=== PATIENT | male | born 1980 | race African-American/Black ===

== ENCOUNTER 2017-01-05 23:40 | Observation (INO) | payer OTHER ==
[2017-01-05] MEDS ORDERED: ASPIRIN PO STA (23:58)
[2017-01-06 00:10] LABS: MANUAL DIFF NEEDED? NO
[2017-01-06 00:18] LABS: BASO% 0.3 % (0.0-0.8); EOS% 2.8 % (0.0-10.0); HEMATOCRIT 38.1 % (42.0-52.0); HEMOGLOBIN 13.5 g/dL (14.0-18.0); IMM GRAN# 0.02 X1000 (0.0-0.04); IMM GRAN% 0.3 % (0.0-0.5); LYMPH# 2.38 X1000 (1.2-3.4); LYMPH% 32.7 % (20.5-51.1); MCH 28.4 PG (27-31); MCHC 35.4 g/dL (33-37); MCV 80.2 FL (81-99); MONO# 0.59 X1000 (0.11-0.59); MONO% 8.1 % (1.7-9.3); MPV 10.3 FL (7.4-10.4); NEUT% 55.8 % (42.2-75.2); PLT 333 X1000 (130-400); RBC 4.75 XMIL (4.7-6.1)
[2017-01-06] MEDS ORDERED: ZOFRAN IV ONE (00:22)
[2017-01-06] MEDS ORDERED: DILAUDID IV ONE (00:22)
--- NOTE | 2017-01-06 00:42 | EKG Report ---
Test Performed on : 01/06/2017 00:33:32 AM Test Reason : CHEST PAIN Blood Pressure : / mmHG Vent. Rate : 083 BPM Atrial Rate : 083 BPM P-R Int : 150 ms QRS Dur : 144 ms QT Int : 406 ms P-R-T Axes : 045 050 031 degrees QTc Int : 477 ms Normal sinus rhythm. Right bundle branch block Abnormal ECG When compared with ECG of 27-AUG-2016 10:06, No significant change was found Unconfirmed Result
[2017-01-06 00:45] LABS: AMYLASE 56 U/L (20-200); LIPASE 22 U/L (13-60)
[2017-01-06 00:49] LABS: INR 0.98 (0.86-1.15); PROTIME 13.3 Seconds (12.1-15.5); PTT PL 28.6 Seconds (22.6-43.9)
[2017-01-06 00:57] LABS: ALBUMIN 3.2 g/dL (3.5-5.0); CALCIUM 9.2 mg/dL (8.8-10.2); MAGNESIUM 1.9 mg/dL (1.5-2.7); POTASSIUM 4.2 mmol/L (3.5-5.1); TOTAL BILIRUBIN 0.2 mg/dL (0.20-1.00); TOTAL PROTEIN 5.5 g/dL (6.3-8.3)
[2017-01-06] MEDS ORDERED: HUMULIN R IV ONE (01:20)
[2017-01-06 01:28] LABS: CK INDEX 2.8 (0.0-2.5); CK-MB 14.4 ng/mL (0.0-5.0)
[2017-01-06 02:03] LABS: URINE CULTURE PL NEEDED? NO; URINE EPITHELIAL CELLS <10 /HPF (<10); URINE SOURCE VOIDED; URINE WBC <10 /HPF (<10)
[2017-01-06 02:04] LABS: CLARITY CLEAR (CLEAR); COLOR YELLOW; URINE CRYSTAL CA OXALATE PRESENT /HPF
[2017-01-06 02:05] LABS: BILIRUBIN URINE NEGATIVE (NEGATIVE); BLOOD URINE 3+ (NEGATIVE); LEUKOCYTES URINE NEGATIVE (NEGATIVE); NITRITE URINE NEGATIVE (NEGATIVE); PH URINE 6.5; SP GRAVITY URINE 1.005; UROBILINOGEN URINE NORMAL
--- NOTE | 2017-01-06 02:21 | PROVIDER DOCUMENTATION ---
HPI-General Adult - General Source: patient - History of Present Illness -Gen Adult Nature of Presenting Problems: Pt is a 36 y/o M c chief complaint of R chest wall pain and RUQ abd pain c nausea x 1 day. Pt states his chest pain radiates to his L chest. Pt has a significant h/o diabetes and multiple PEs and DVTs. Pt is currently on Xarelto treating a RLE DVT. On arrival pt is in minimal distress. <Tavon Bennett - Last Filed: 01/06/17 02:10> <Siria Ponce - Last Filed: 01/06/17 03:00> <Geovani Benz - Last Filed: 01/06/17 04:24> - General Chief Complaint: Chest Pain Stated Complaint: CHEST PAIN Time Seen by Provider: 01/05/17 23:58 Allergies/Adverse Reactions: Patient Allergies Allergy/AdvReac Type Severity Reaction Status Date / Time morphine Allergy Mild HIVES Verified 10/06/16 22:08 sulfamethoxazole Allergy Unknown Unknown Verified 10/06/16 22:08 [From Bactrim] trimethoprim [From Bactrim] Allergy Unknown Unknown Verified 10/06/16 22:08 Home Medications: Home Medication List Medication Instructions Recorded Confirmed Last Taken Type Insulin Aspart [Novolog] See Protocol SQ DIRECTED 06/29/15 10/06/16 10/05/16 History Losartan [Cozaar] 50 mg PO BID 08/27/16 10/06/16 10/06/16 History Azithromycin [Zithromax Z-Víctor] 250 mg PO DIRECTED #1 pkg 10/06/16 Unknown Rx Cetirizine [Zyrtec] 10 mg PO DAILY #20 tablet 10/06/16 Unknown Rx Methylprednisolone [Medrol Dosepak] 4 mg PO DIRECTED #1 package 10/06/16 Unknown Rx Rivaroxaban [Xarelto] 10 mg PO DAILY 10/06/16 10/06/16 10/06/16 History Review of Systems - Adult - REVIEW OF SYSTEMS - ADULT Constitutional: reports: no symptoms reported. denies: chills, fatique Eyes: reports: no symptoms reported. denies: blurred vision, double vision Ears, Nose, Mouth & Throat: reports: no symptoms reported. denies: ear pain, nose pain, throat pain Cardiovascular: reports: chest pain. denies: orthopnea Respiratory: reports: no symptoms reported. denies: cough, shortness of breath Gastrointestinal: reports: no symptoms reported. denies: nausea, vomiting Genitourinary: reports: no symptoms reported. denies: hematuria, urinary retention Musculoskeletal: reports: no symptoms reported. denies: joint pain, joint swelling Integumentary: reports: no symptoms reported. denies: hives, itching Neurological: reports: no symptoms reported. denies: numbness, paresthesia Psychiatric: reports: no symptoms reported. denies: anxiety, emotional problems Endocrine: reports: no symptoms reported. denies: cold intolerance, heat intolerance Hematologic/Lymphatic: reports: no symptoms reported. denies: blood clots, low blood count Allergic/Immunologic: reports: no symptoms reported. denies: allergic reactions , eczema All Other Systems: Reviewed and Negative <Tavon Bennett - Last Filed: 01/06/17 02:10> Past History - Adult - PAST MEDICAL HISTORY-ADULT Review of Records: reports: Old Records Reviewed, Nursing Assessment Review, Medications Reviewed, Social history reviewed & non-contributory. Major Childhood Illnesses: reports: denies history Cardiovascular: reports: blood clots (had DVT in past) Respiratory: reports: denies history Gastrointestinal: reports: denies history Obstetrical/Gynecological: reports: denies history Genitourinary: reports: denies history Musculoskeletal: reports: denies history Neurological: reports: denies history Psychiatric: reports: denies history Endocrine/Immune: reports: Diabetes Diabetes Type: Type 2 Diabetes controlled by:: Insulin Dependent Other Conditions: reports: denies history - PRIOR SURGERIES/PROCEDURES Surgical/Procedure History: reports: other (IVC filter) - PRIOR HOSPITALIZATIONS Prior Hospitalizations: reports: for other non-related - IMMUNIZATION STATUS Childhood Immunizations: See Nurse Assessment Flu Vaccine: See Nurse Assessment - FAMILY HISTORY Family History: reviewed, not pertinent - SOCIAL HISTORY Smoking: denies Substance Use: none/never Alcohol Use Frequency: never Living Situation: family <Tavon Bennett - Last Filed: 01/06/17 02:10> Physical Exam-General - PHYSICAL EXAM-ADULT Initial Vital Signs Reviewed: Yes - CONSTITUTIONAL General Appearance: appears well, alert, no apparent distress - EYES Eyes: PERRL/EOMI, pink conjunctivae - HEAD, EARS, NOSE, MOUTH & THROAT HENMT: normocephalic/atraumatic, moist mucous membranes, normal ENT inspection - NECK Neck: non-tender, normal inspection - RESPIRATORY Respiratory: lungs clear, normal breath sounds, other (Tenderness to R lower chest on palpation, tenderness to L chest wall) - CARDIOVASCULAR Cardiovascular: normal peripheral pulses, regular rate, rhythm, no edema - GASTROINTESTINAL (ABDOMEN) Abdominal Exam: normal bowel sounds, soft, tenderness (RUQ) - MUSCULOSKELETAL Back Exam: normal inspection, no CVA tenderness, no vertebral tenderness Extremity: normal range of motion, non-tender, normal gait - SKIN Integumentary: normal color, normal turgor, warm/dry - NEUROLOGIC Neurologic: grossly normal, no motor/sensory deficits - PSYCHIATRIC Psych/Mental Status: normal mood/affect, normal thought content, normal thought process, oriented x 3 <Tavon Bennett - Last Filed: 01/06/17 02:10> Progress - CHANGE OF SHIFT REPORT (ED Provider) Report Given and Care Transferred to:: Dr. Benz (ER MD) Time of Transfer: 02:14 Items Pending: Labs, CT/MRI Results <Tavon Bennett - Last Filed: 01/06/17 02:10> - EKG 1 Time of EKG reading by physician:: 00:33 EKG Read and Signed by:: Geovani Benz EKG Interpretation (*Must complete 3 of following elements*): Abnormal Rate: 83 Rhythm: NSR QRS: RBB - CT/MRI 1 CT Study: Abdomen, Angiogram, Pelvis Impression: Abnormal (No PE identified. Mildly increased fluid in the distal small bowel with mild distention of small bowel and no definite obstruction at this time.: Dr. Amador- Real Rad radiologist) <Siria Ponce - Last Filed: 01/06/17 03:00> Departure <Tavon Bennett - Last Filed: 01/06/17 02:10> <Siria Ponce - Last Filed: 01/06/17 03:00> - Departure Time of Disposition Order: 04:15 Certified Medical Emergency: Emergent <Geovani Benz - Last Filed: 01/06/17 04:24> - Departure DIAGNOSIS: Poorly controlled diabetes mellitus Chest pain Qualifiers: Chest pain type: chest pain due to myocardial ischemia Ischemic chest pain type : stable angina pectoris Qualified Code(s): I20.8 - Other forms of angina pectoris DVT of popliteal vein Qualifiers: Laterality: unspecified laterality Chronicity: chronic Qualified Code(s): I82.539 - Chronic embolism and thrombosis of unspecified popliteal vein Disposition: ADMITTED INPATIENT 09 Condition: Fair Referrals: Robert Leiva MD [Primary Care Provider] - Attestation - Physician/ FELPIA Attestation Patient care was provided by Advanced Practice Provider:: Yes Advanced Practice Provider:: Tavon Bennett Advanced Practice Provider documentation review:: The Mid-level provider documentation, treatment plan and medical decision making was reviewed by the physician who agrees with all treatment and medical decision making by the P. The physician spent face to face time with patient:: Yes <Tavon Bennett - Last Filed: 01/06/17 02:10> - Scribe Verification/Attestation Scribe:: Siria Ponce Acting as Scribe for:: Geovani Benz Scribe documention review:: This chart was documented by a scribe and accurately reflects the service the provider performed and the decisions made by the provider. <Siria Ponce - Last Filed: 01/06/17 03:00> Physician Attestation - Physician Attestation I, the provider, attest to the following statement:: Tavon Bennett Physician documentation Attestation:: This documentation recorded by the scribe accurately reflects the service I personally performed and the decisions made by me. <Tavon Bennett - Last Filed: 01/06/17 02:10> - Physician Attestation I, the provider, attest to the following statement:: Geovani Benz Physician documentation Attestation:: This documentation recorded by the scribe accurately reflects the service I personally performed and the decisions made by me. <Siria Ponce - Last Filed: 01/06/17 03:00>
[2017-01-06] MEDS ORDERED: NITROGLYCERIN TOP ONE ×2 (03:12→04:12)
[2017-01-06] MEDS ORDERED: NITROGLYCERIN ONE (03:14)
--- NOTE | 2017-01-06 03:40 | EKG Report ---
Test Performed on : 01/06/2017 03:14:21 AM Test Reason : pain Blood Pressure : / mmHG Vent. Rate : 087 BPM Atrial Rate : 087 BPM P-R Int : 156 ms QRS Dur : 148 ms QT Int : 406 ms P-R-T Axes : 043 056 022 degrees QTc Int : 488 ms Normal sinus rhythm. Right bundle branch block Abnormal ECG When compared with ECG of 06-JAN-2017 01:12, (Unconfirmed) Right bundle branch block is now present Unconfirmed Result
[2017-01-06] MEDS ORDERED: DEMEROL IV ONE (03:59)
[2017-01-06] MEDS ORDERED: NS 1,000 ML IV ONE (04:12)
[2017-01-06] MEDS ORDERED: DILAUDID IV PRN (04:12)
[2017-01-06] MEDS ORDERED: DEMEROL ONE (04:29)
[2017-01-06 04:30] LABS: CK INDEX 2.9 (0.0-2.5); CK-MB 12.07 ng/mL (0.0-5.0)
--- NOTE | 2017-01-06 05:48 | EKG Report ---
Test Performed on : 01/06/2017 05:40:27 AM Test Reason : C/P Blood Pressure : / mmHG Vent. Rate : 086 BPM Atrial Rate : 086 BPM P-R Int : 164 ms QRS Dur : 148 ms QT Int : 412 ms P-R-T Axes : 057 045 020 degrees QTc Int : 493 ms Normal sinus rhythm. Right bundle branch block Abnormal ECG When compared with ECG of 06-JAN-2017 03:14, (Unconfirmed) No significant change was found Unconfirmed Result
[2017-01-06] MEDS: ZOFRAN IV PRN ×2 (06:56→10:58)
[2017-01-06] MEDS ORDERED: HUMULIN R SUBQ SCH (07:00)
--- NOTE | 2017-01-06 07:17 | Diag Imaging Result Document ---
PROCEDURE NAME: CHEST-2 VIEWS - 01/05/2017 TWO VIEWS OF THE CHEST: FINDINGS: There is no evidence of acute cardiac or pulmonary disease. Compared to 10/06/2016, there has been improvement in the inspiration. Otherwise there has been no significant change. IMPRESSION: No acute disease.
--- NOTE | 2017-01-06 07:47 | HISTORY AND PHYSICAL ---
CHIEF COMPLAINT: Chest pain. HISTORY OF PRESENT ILLNESS: The patient is a 36-year-old male who unfortunately has been very poorly compliant with his diabetes over the years. He has a recent history of DVT for which he has finally decided to take Xarelto. He presents to the emergency department noting that he is having right upper quadrant, right-sided chest pain that also develops into left-sided chest pain with radiation into his left arm. Positive nausea. Denies any worsening of the symptoms with movement. PAST MEDICAL HISTORY: Diabetes, multiple DVTs and pulmonary emboli in the past, hypertension, medical noncompliance. PAST SURGICAL HISTORY: IVC filter. ALLERGIES: Morphine causing hives. Bactrim causing itching. MEDICATIONS: NovoLog, Cozaar 50 b.i.d., Zyrtec, Xarelto 10 once a day. Uncertain why he is on such a low dose of Xarelto. Certainly should be on 20 mg once a day for treatment. FAMILY HISTORY: Noncontributory. SOCIAL HISTORY: The patient lives at home. He is currently not employed. He is . Does not smoke. Denies any other illicit substances. REVIEW OF SYSTEMS: As noted above. Patient denies any current fevers or chills. Positive nausea. Does not associated the nausea with the chest pain or the radiation. Denies any diaphoresis with chest pain. Denies any change in pain in his right upper quadrant with eating or not eating. Denies any diarrhea, constipation, melena, hematochezia. Denies any dysuria, frequency, urgency. Denies hesitancy, polyuria, polydipsia. Denies skin rashes, weight loss, or weight gain. PHYSICAL EXAMINATION: VITAL SIGNS: Reviewed. Temperature 97.5, pulse 87, respiratory rate 18, BP 148/80 to 115/74, saturating 96% on room air. GENERAL: Patient is a well-developed, well-nourished male who is in no respiratory distress. He is awake, alert. NECK: Supple. CV: Regular rate. CHEST: Relatively clear. ABDOMEN: Soft. Tender in the right upper quadrant. Positive bowel sounds. EXTREMITIES: Moves all extremities. NEUROLOGIC: No changes. LABS: CBC essentially normal. D-dimer less than 0.22. INR 0.98. Glucose 427. Creatinine 1.4. CPK 509, MB 14.4 with an index at 2.8. Troponin 0.024. ASSESSMENT: 1. Chest pain with elevated CPK and MB fraction. His troponin is negative x3 and EKG is unchanged. 2. Acute renal failure. His serum creatinine baseline is typically 1 to 1.1. He is currently at 1.4. He has had some nausea and notes he has not been drinking well which certainly could lead to a prerenal situation which would increase his BUN and creatinine. 3. Diabetes with hyperglycemia. Will continue patient's home insulin. 4. Mild protein calorie malnutrition with an albumin of 3.2. PLAN: We will admit patient to the hospital. We will check an ultrasound of his right upper quadrant to rule out gallbladder disease. Given his CPK is elevated he certainly needs stress test. Although with a negative troponin, it would be less likely that this was cardiac. Unfortunately, given his significant history of noncompliance and poorly controlled diabetes he certainly is at risk for heart disease. D-dimer is negative as is CTA of the chest, so this certainly is very, very unlikely to be a pulmonary emboli. We will continue Xarelto. If his stress test is negative and his ultrasound is negative. We will increase Xarelto to 20 mg once a day.
[2017-01-06 08:04] LABS: CK INDEX 2.8 (0.0-2.5); CK-MB 10.44 ng/mL (0.0-5.0)
[2017-01-06] MEDS ORDERED: XARELTO PO SCH (09:00)
--- NOTE | 2017-01-06 09:38 | Diag Imaging Result Document ---
PROCEDURE NAME: US ABDOMEN-COMPLETE - 01/06/2017 ABDOMINAL ULTRASOUND: FINDINGS: The aorta and inferior vena cava are within normal limits. The pancreatic body is normal in appearance and the remainder is not well demonstrated. There is no evidence of biliary dilatation, the common bile duct measuring 4 mm. The gallbladder is clear and nontender. There is antegrade flow in the portal vein. The spleen is not enlarged. The liver is otherwise unremarkable. The kidneys are without evidence of hydronephrosis or mass. There are no abnormal fluid collections. IMPRESSION: No evidence of acute disease.
[2017-01-06] MEDS: COZAAR PO SCH ×2 (09:40→21:26)
[2017-01-06 10:11] LABS: HEMOGLOBIN A1C 10.6 % (4.8-6.0)
[2017-01-06] MEDS ORDERED: TYLENOL PO ONE (10:49)
[2017-01-06] MEDS: HUMALOG (PARKWAY) SUBQ SCH ×3 (10:59→21:26)
--- NOTE | 2017-01-06 15:13 | Diag Imaging Result Document ---
PROCEDURE NAME: ABD/PELVIS/PULM ARTERIES - 01/06/2017 CTA OF THE CHEST WITH INTRAVENOUS CONTRAST: There are no filling defects in the pulmonary arteries. There is some dependent atelectasis in the lower lobes. There is no evidence of acute pulmonary disease otherwise. There are no abnormal fluid collections. The regional skeleton appears to be intact. IMPRESSION: No evidence of acute disease. CT OF THE ABDOMEN WITH INTRAVENOUS CONTRAST: FINDINGS: The liver, spleen, adrenal glands, and pancreas are within normal limits. The gallbladder is without evidence of stones or inflammation. There is an inferior vena cava filter just below the renal veins. The kidneys are without evidence of hydronephrosis, mass or stones. There is no evidence of bowel obstruction. The appendix is not distended or inflamed in appearance. The aorta is not distended. CT OF THE PELVIS WITH INTRAVENOUS CONTRAST: FINDINGS: There is no evidence of free fluid. No significant adenopathy is present.
[2017-01-06 16:16] LABS: UR AMPHETAMINES QUAL NONE DETECTED (NONE DETECT); UR BARBITUATES QUAL NONE DETECTED (NONE DETECT); UR BENZODIAZEPIN QUAL NONE DETECTED (NONE DETECT); UR CANNABINOIDS QUAL NONE DETECTED (NONE DETECT); UR COCAINE QUAL NONE DETECTED (NONE DETECT); UR MDMA QUAL NONE DETECTED (NONE DETECT); UR METHADONE QUAL NONE DETECTED (NONE DETECT); UR METHAMPHETAMINE QUAL NONE DETECTED (NONE DETECT); UR OPIATES QUAL NONE DETECTED (NONE DETECT); UR OXYCODONE QUAL NONE DETECTED (NONE DETECT); UR PCP QUAL NONE DETECTED (NONE DETECT); UR TCA QUAL NONE DETECTED (NONE DETECT)
[2017-01-06] MEDS ORDERED: ZOFRAN IV PRN (16:23)
[2017-01-06] MEDS ORDERED: SODIUM CHLORIDE 0.9% INJ SCH (16:30)
--- NOTE | 2017-01-06 17:27 | Diag Imaging Result Document ---
PROCEDURE NAME: MYOCARDIAL PERF SCAN, STR/REST - 01/06/2017 STUDY: Rest/stress Lexiscan myocardial perfusion study. REQUESTING PHYSICIAN: Robert Leiva MD REASON FOR THE STUDY: Abnormal cardiac enzymes and chest pain. DESCRIPTION: The patient came into the nuclear lab and received a rest injection of technetium 99 sestamibi 14.6 mCi. Multiple tomographic views of the cardiac structure were obtained at rest. Subsequently the patient underwent infusion of Lexiscan under the supervision of Dr. Adam. At peak infusion he was injected with technetium 99 sestamibi 45.3 mCi. Multiple tomographic views of the cardiac structures were obtained following the completion of the protocol. The following is a summary of the myocardial perfusion portion of the study. Poststress tomographic views of the left ventricle showed normal homogeneous distribution of the radiotracer throughout the entire left ventricular myocardium. There was no evidence of any postexercise defect. The rest images showed normal perfusion. Polar plots revealed the same. There was no evidence of neither inducible ischemia nor myocardial scar. Gated SPECT shows normal left ventricular systolic function. The ejection fraction is estimated at 60% with normal ventricular wall volumes and no wall motion abnormality. The lung/heart ratio is normal. TID is normal. SUMMARY: In summary, this study shows: 1. Essentially normal poststress myocardial perfusion scan. There is no scintigraphic evidence of pharmacologically-induced myocardial ischemia during the Lexiscan protocol. 2. Normal left ventricular systolic function with ejection fraction estimated at 60% with normal ventricular volumes and no wall motion abnormality. This study indicates a low risk for ischemic events. Clinical correlation is recommended.
[2017-01-06] MEDS: PROTONIX IV SCH (18:41)
[2017-01-07] MEDS: HUMALOG (PARKWAY) SUBQ SCH (06:00)
[2017-01-07 07:34] LABS: HEMATOCRIT 35.2 % (42.0-52.0); HEMOGLOBIN 12.5 g/dL (14.0-18.0); MCH 28.5 PG (27-31); MCHC 35.5 g/dL (33-37); MCV 80.4 FL (81-99); MPV 9.9 FL (7.4-10.4); RBC 4.38 XMIL (4.7-6.1)
--- NOTE | 2017-01-07 07:40 | PROGRESS NOTE ---
DATE: 01/07/2017 SUBJECTIVE: The patient notes he is still having some nausea, vomiting and abdominal pain. Still does not feel well. Denies any current chest pains or palpitations. Denies any dysuria or urinary frequency. OBJECTIVE: Vital Signs: Reviewed. Temperature 98 degrees, pulse 95, respiratory 18, BP 151/85 to 177/93. General: Patient is a well-developed male who is currently in no respiratory distress. He is awake, alert, lying in bed. Complains of abdominal pain. Neck: Supple. CV: Regular rate. Chest: Relatively clear. Abdomen: Soft. Diffusely tender in the epigastric region. DIAGNOSTIC DATA: Labs currently pending. Abdominal ultrasound negative for any gallbladder disease. GXT negative for acute coronary disease. ASSESSMENT/PLAN: 1. Diabetes with extremely poor home control. Patient has been very recalcitrant over the years of treatment. His medications have always been too expensive or too difficult to take, or too time-consuming. He recently notes that his previous health insurance [employer] would not pay for certain medications, so he simply stopped them. He has been taking unbeknownst to myself, NovoLog when he felt like he needed it. Did not take his blood sugar on any regular basis and did not take medications on any regular basis. 2. Nausea, vomiting. Likely secondary to diabetic gastroparesis. We will check a gastric emptying study. 3. Known history of deep vein thrombosis. Patient is on a low-dose of Xarelto because he has been halving his dose at home to attempt to save money. 4. Hypertension. Patient's blood pressures have been elevated. We will restart his home medications and follow. 5. Plan hopefully home in the next 1 or 2 days.
[2017-01-07 07:53] LABS: ALBUMIN 2.8 g/dL (3.5-5.0); CALCIUM 8.9 mg/dL (8.8-10.2); POTASSIUM 3.9 mmol/L (3.5-5.1); TOTAL BILIRUBIN 0.3 mg/dL (0.20-1.00); TOTAL PROTEIN 5.3 g/dL (6.3-8.3)
[2017-01-07] MEDS: COZAAR PO SCH ×2 (08:21→21:39)
[2017-01-07] MEDS: REGLAN IV SCH ×3 (08:21→21:39)
[2017-01-07] MEDS ORDERED: XARELTO PO SCH (09:00)
[2017-01-07] MEDS: HUMALOG DOSE (PARKWAY) SUBQ SCH ×3 (10:55→21:39)
[2017-01-07] MEDS: PROTONIX IV SCH (18:08)
[2017-01-08] MEDS: REGLAN IV SCH (05:51)
[2017-01-08] MEDS: HUMALOG DOSE (PARKWAY) SUBQ SCH (06:11)
[2017-01-08] MEDS ORDERED: DILAUDID IV PRN (07:00)
--- NOTE | 2017-01-08 14:33 | Diag Imaging Result Document ---
PROCEDURE NAME: GASTRIC EMPTYING - 01/08/2017 GASTRIC EMPTYING STUDY: FINDINGS: The patient was administered 563 mCi of technetium-99m sulfur colloid in oatmeal and the half-time of gastric emptying is 172.7 minutes which is well above the normal range. IMPRESSION: Delayed gastric emptying.
[2017-01-08 15:04] VITALS: BP 192/107
[2017-01-08] MEDS ORDERED: XARELTO PO SCH (17:00)
--- NOTE | 2017-01-09 14:38 | DISCHARGE SUMMARY ---
ADMISSION DATE: 01/05/2017 DISCHARGE DATE: 01/08/2017 DIAGNOSES: 1. Chest pain. Resolved. 2. Diabetes with extremely poor home control with an A1c of 10.6. 3. Nausea and vomiting. 4. Diabetic gastroparesis with a delayed gastric emptying of 172.7 minutes. 5. Known history of deep venous thrombosis. Currently on Xarelto. 6. Hypertension. DIAGNOSTICS: On 01/05/2017, chest x-ray revealed no acute disease. On 01/06/2017, CT of the abdomen and pelvis revealed no evidence of free fluid, no significant adenopathy, no evidence of acute disease for CT of the pelvis. CT of the abdomen revealed liver, spleen, adrenal glands and pancreas are within normal limits. The gallbladder is without evidence of stones or inflammation. There is an inferior vena cava filter just below the renal veins. The kidneys are without evidence of hydronephrosis, mass or stones. There is no evidence of bowel obstruction. The appendix is not distended or inflamed in appearance. The aorta is not distended. CT of the chest with IV contrast revealed no filling defects in the pulmonary arteries. There is some dependent atelectasis in the lower lobes. There is no evidence of acute pulmonary disease otherwise. There are no abnormal fluid collections. The regional skeleton appears to be intact, no evidence of acute disease. On 01/06/2017, abdominal ultrasound reveals no evidence of acute disease. On 01/06/2017, myocardial perfusion scan revealed essentially normal post-stress myocardial perfusion scan, no scintigraphic evidence of pharmacologically-induced myocardial ischemia during the Lexiscan scan protocol. Normal left ventricular systolic function with EF estimated at 60% with normal ventricular volumes and no wall motion abnormality. Study indicates a low risk for ischemic events On 01/08/2017, gastric emptying nuclear medicine revealed half-time gastric emptying of 172.7 minutes which is well above the normal range delayed gastric emptying. HOSPITAL COURSE: Mr. Arenas presented to the emergency room complaining of chest pain. He has a history of being poorly compliant with his diabetes over the years as well as a history of DVT for which he does take Xarelto. On admission he complained of right upper quadrant right-sided chest pain that develops into left-sided chest pain with radiation into his arm and nausea. His troponins were negative x3 with EKG unchanged. He underwent a myocardial perfusion scan which was negative for ischemia. He then underwent a gastric emptying nuclear scan which revealed gastroparesis. He was started on Reglan IV q.6 hours. This did help symptoms somewhat, although he continued with some nausea, vomiting and abdominal pain. He was noted to have an A1c of 10.6. He has a history of noncompliance and he notes that his previous health insurance, [employer], would not pay for certain medications so he stopped them. Unbeknownst to Dr. Leiva, his primary care physician, he was taking his NovoLog only when he felt he needed it. He was not checking his blood sugars on a regular basis or taking medications on any regular basis. On admission he had a blood sugar of 427. With his Lantus insulin and sliding scale his blood sugars have been in the 140-200 range. He was in acute renal failure on admission, with a creatinine of 1.4. His serum creatinine baseline is 1-1.1. He did have nausea and had not been drinking like he normally would, which could have led to an increase in his BUN and creatinine. After hydration he did receive IV contrast and creatinine did increase somewhat. He has been on Xarelto because with his DVT he was on a low dose of Xarelto in an attempt to save money due to his insurance changes. This dose will be increased to 20 mg daily. DISCHARGE PHYSICAL EXAMINATION: Cardiovascular: Regular rate and rhythm. S1 and S2 appreciated. Pulmonary: Breath sounds are clear. No increased work of breathing noted. Gastrointestinal: Soft, nontender. Abdomen is soft. He is diffusely tender in epigastric region. He is nondistended, with bowel sounds in all 4 quadrants. DISCHARGE MEDICATIONS: 1. Reglan 10 mg p.o. before meals and at bedtime. 2. Cozaar 50 mg b.i.d. 3. Lantus insulin 15 units daily. 4. NovoLog insulin, sliding scale as directed prehospitalization. 5. Xarelto 10 mg daily. DISCHARGE DIET: Diabetic. DISCHARGE ACTIVITY: As tolerated. FOLLOWUP: He is to follow with Dr. Leiva in the next 2-3 weeks. He will need to have a BMP drawn. We will give the patient orders for this. He is being discharged home in stable condition with family members. TIME SPENT: This is a greater than 30 minute discharge. Dictated by WONG King for Robert Leiva MD
== END 2017-01-08 17:40 | disposition home or self-care (01) ==
LOC: P.ED 23:40 → P.MEDSURG 23:41 → INTOOBSV 23:41
PROVIDERS: ADMIT Family Medicine; ATTEND Family Medicine
DX: R07.9 Chest pain, unspecified (principal); E11.65 Type 2 diabetes mellitus with hyperglycemia; T38.3X6A Underdosing of insulin and oral hypoglycemic [antidiabetic] drugs, initial encounter; Z91.128 Patient's intentional underdosing of medication regimen for other reason; Z91.19 Patient's noncompliance with other medical treatment and regimen; Z86.718 Personal history of other venous thrombosis and embolism; Z86.711 Personal history of pulmonary embolism; I10 Essential (primary) hypertension; E44.1 Mild protein-calorie malnutrition; N17.9 Acute kidney failure, unspecified; R10.11 Right upper quadrant pain; R11.2 Nausea with vomiting, unspecified; E11.43 Type 2 diabetes mellitus with diabetic autonomic (poly)neuropathy; K31.84 Gastroparesis; Z79.899 Other long term (current) drug therapy
CPT/HCPCS: 71020; 71275; 74177; 76700; 78264; 78452; 80053; 80305; 81001; 82009; 82150; 82550; 82553; 82948; 83036; 83690; 83735; 83880; 84443; 84484; 85025; 85027; 85379; 85610; 85730; 93005; 93017; 96374; 96375; A9500; A9541; C9113; J1170; J1815; J2175; J2405; J2765; J7030; Q9967; S0164

== ENCOUNTER 2018-12-26 06:26 | Observation (INO) ==
[2018-12-26] MEDS ORDERED: ZOFRAN ODT PO ONE (06:40)
[2018-12-26] MEDS ORDERED: MOTRIN PO ONE (06:40)
[2018-12-26] MEDS ORDERED: ZOSYN 3.375 GM in NS 50 ML IV ONE ×2 (06:43→10:00)
[2018-12-26] MEDS ORDERED: VANCOMYCIN 1 GM/NS 1 GM/250 ML IVPB IV ONE (06:43)
[2018-12-26] MEDS ORDERED: NS 1,000 ML IV SCH (06:45)
--- NOTE | 2018-12-26 06:46 | PROVIDER DOCUMENTATION ---
HPI-General Adult - General Chief Complaint: Flu Symptoms Stated Complaint: FLU SYMPTOMS Time Seen by Provider: 12/26/18 06:38 Source: patient Allergies/Adverse Reactions: Patient Allergies Allergy/AdvReac Type Severity Reaction Status Date / Time morphine Allergy Mild HIVES Verified 08/04/18 16:31 sulfamethoxazole Allergy Unknown Unknown Verified 08/04/18 16:31 [From Bactrim] trimethoprim [From Bactrim] Allergy Unknown Unknown Verified 08/04/18 16:31 Home Medications: Home Medication List Medication Instructions Recorded Confirmed Last Taken Type Acetaminophen [Tylenol] 650 mg PO Q6H PRN PRN tablet 11/22/17 12/26/18 Unknown Rx Insulin Glargine [Lantus] 16 units SQ DAILY 02/04/18 12/26/18 12/25/18 History Insulin Lispro [Humalog Kwikpen See Protocol SQ PRN PRN 02/04/18 12/26/18 Unknown History [id number]] Carvedilol [Coreg] 25 mg PO Q12H #60 tab 02/05/18 12/26/18 12/25/18 Rx Lactulose 30 ml PO DAILY PRN PRN 08/04/18 12/26/18 Unknown History Losartan Potassium 100 mg PO DAILY 08/04/18 12/26/18 12/25/18 History Promethazine HCl 25 mg PO TID PRN 08/04/18 12/26/18 Unknown History Hydralazine [Apresoline] 100 mg PO TID 12/26/18 12/26/18 12/25/18 History - History of Present Illness -Gen Adult Nature of Presenting Problems: says son was dx with Flu on Sat, placed on Tamiflu. Yest pm, began with sore throat, cough feeling lightheaded. Early this am, began with fever. Has some nausea, chest is sore from cough. no diarrhea. Is a MWF dialysis patient, takes insulin only by sliding scale Did not take his hydralazine this am due to vomiting Location of Pain/Injury: reports: none Pain Radiation: reports: no radiation Quality of Pain: reports: aching, burning (in throat) Timing: reports: still present Modifying Factors: improves with: nothing Similar Symptoms Previously?: No Recently seen or treated by another doctor?: No Review of Systems - Adult - REVIEW OF SYSTEMS - ADULT Constitutional: reports: see HPI, chills, fever Eyes: reports: no symptoms reported Ears, Nose, Mouth & Throat: reports: see HPI Cardiovascular: reports: no symptoms reported Respiratory: reports: cough (Non productive) Gastrointestinal: reports: nausea. denies: diarrhea Genitourinary: reports: no symptoms reported Musculoskeletal: reports: no symptoms reported Integumentary: reports: no symptoms reported Neurological: reports: no symptoms reported Psychiatric: reports: no symptoms reported Endocrine: reports: no symptoms reported Hematologic/Lymphatic: reports: no symptoms reported Allergic/Immunologic: reports: no symptoms reported Past History - Adult - PAST MEDICAL HISTORY-ADULT Review of Records: reports: Old Records Reviewed, Nursing Assessment Review, Medications Reviewed Major Childhood Illnesses: reports: denies history Cardiovascular: reports: blood clots, HTN Respiratory: reports: denies history Gastrointestinal: reports: denies history Obstetrical/Gynecological: reports: denies history Genitourinary: reports: denies history Musculoskeletal: reports: denies history Neurological: reports: denies history Psychiatric: reports: denies history Endocrine/Immune: reports: Diabetes Other Conditions: reports: denies history - PRIOR SURGERIES/PROCEDURES Surgical/Procedure History: reports: other (IVC filter) - PRIOR HOSPITALIZATIONS Prior Hospitalizations: reports: for other non-related - IMMUNIZATION STATUS Childhood Immunizations: See Nurse Assessment Flu Vaccine: See Nurse Assessment - FAMILY HISTORY Family History: reviewed, not pertinent Physical Exam-General - PHYSICAL EXAM-ADULT Initial Vital Signs Reviewed: Yes - CONSTITUTIONAL General Appearance: alert, mild distress - EYES Eyes: PERRL/EOMI - HEAD, EARS, NOSE, MOUTH & THROAT HENMT: normocephalic/atraumatic, moist mucous membranes, normal ENT inspection, pharynx normal - NECK Neck: full range of motion, supple - RESPIRATORY Respiratory: lungs clear, normal breath sounds, no pleuratic chest pain, no respiratory distress, no accessory muscle use - CARDIOVASCULAR Cardiovascular: tachycardia - GASTROINTESTINAL (ABDOMEN) Abdominal Exam: normal bowel sounds, non tender, soft - MUSCULOSKELETAL Back Exam: normal inspection, no CVA tenderness, no vertebral tenderness Extremity: normal range of motion - SKIN Integumentary: normal color, normal turgor, warm/dry - NEUROLOGIC Neurologic: tin 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 mill II-XII nml as tested, grossly normal, no motor/sensory deficits - PSYCHIATRIC Psych/Mental Status: normal mood/affect, normal thought content, normal thought process, oriented x 3 Progress - PLAN OF CARE/RESULTS Progress/Plan/Lab Results: Vital Signs - 8 hr 12/26/18 06:32 Temperature 102.8 F H Pulse Rate 112 H Respiratory Rate 20 Blood Pressure 234/123 O2 Sat by Pulse Oximetry 94 L Orders Category Date Time Status Cardiac Monitoring DIRECTED Care 12/26/18 06:39 Active IV Insertion ORDERED Care 12/26/18 06:39 Active Notify MD of + Sepsis Screen NOW Care 12/26/18 06:39 Active Notify Physician As Ordered Care 12/26/18 06:39 Active CHEST-1 VIEW [RAD] Stat Exams 12/26/18 06:39 Ordered BLOOD CULTURE [BLDCUL] Stat Lab 12/26/18 06:39 Uncollected CBC WITH DIFF [HEME] Stat Lab 12/26/18 06:39 Uncollected CK PROFILE [SP CHEM] Stat Lab 12/26/18 06:39 Uncollected COMPREHENSIVE METABOLIC PANEL [CHEM] Stat Lab 12/26/18 06:[address] Stat Lab 12/26/18 06:40 Ordered LACTATE, PLASMA [CHEM] Q3H Lab 12/26/18 06:45 Uncollected LACTATE, PLASMA [CHEM] Q3H Lab 12/26/18 09:45 Uncollected LACTATE, PLASMA [CHEM] Q3H Lab 12/26/18 12:45 Uncollected PROTIME WITH INR [COAG] Stat Lab 12/26/18 06:39 Uncollected PTT [COAG] Stat Lab 12/26/18 06:39 Uncollected TROPONIN T Stat Lab 12/26/18 06:[address] W/POSS RFLX CULT [URINALYSIS] Stat Lab 12/26/18 06:39 Uncollected 0.9% Sodium Chloride Inj [Ns] 1,000 ml Med 12/26/18 06:45 Ordered IV 1,000 mls/hr Ibuprofen [Motrin] Med 12/26/18 06:40 Discontinued 600 mg PO NOW ONE Ondansetron Odt [Zofran Odt] Med 12/26/18 06:40 Discontinued 4 mg PO NOW ONE Vancomycin 1 gm IV Now Med 12/26/18 06:43 Ordered Vancomycin 1 gm/Ns 1 gm in 250 ml IV NOW Zosyn 3.375 gm/Ns IV Now Med 12/26/18 06:43 Ordered Piperacillin/Tazobactam [Zosyn] 3.375 gm 0.9% Sodium Chloride Inj [Ns] 50 ml IV NOW Oxygen Device Stat Oth 12/26/18 06:39 Active Fluid bolus restricted since is dialysis pt Result Diagrams: 12/27/18 07:10 12/27/18 07:10 - REASSESSMENT Reassessment #1 Time Reassessed: 08:37 Status: improving (feels better, hydralizine given. just notified troponin up, get EKG.Has not retained any of his meds this morning. will dose co) Reassessment #2 Time Reassessed: 13:01 Status: unchanged (NO CHEST PAIN, REPEAT TROP UNCHANGED AT 0.48. ADMIT TO [facility] SOON.) - EKG 1 Time of EKG reading by physician:: 08:44 EKG Read and Signed by:: Trevon Carrizales EKG Interpretation (*Must complete 3 of following elements*): Abnormal Rate: 97 Rhythm: nsr QRS: RBB TX Interval: normal - CONSULTS/PCP/HOSPITALIST Notification #1 *Consult/PCP/Hospitalist*: DR MUNGUIA Time Discussed: 09:55 Consult Disposition: Admit (WILL ARRANGE ADMISSION TO [facility] FOR DIALYSIS. [facility].) - CHANGE OF SHIFT REPORT (ED Provider) 1 Report Given and Care Transferred to:: Trevon Carrizales Time of Transfer: 07:15 Items Pending: Labs Departure - Departure Date of Disposition Decision: 12/26/18 Time of Disposition Decision: 10:21 DIAGNOSIS: Uncontrolled hypertension, Renal failure, Elevated troponin, Fever, Flu-like symptoms Disposition: ADMITTED INPATIENT 09 Certified Medical Emergency: Emergent Condition: Fair - Critical Care Note This patient required my direct & personal management of CC.: No Attestation - Physician/ FELIPA Attestation Patient care was provided by Advanced Practice Provider:: No The physician spent face to face time with patient:: Yes Advanced Practice Provider documentation review:: Supervising physician onsite and consulted in the evaluation and care of this patient. The physician did have a face to face encounter with the patient.
[2018-12-26] MEDS ORDERED: TAMIFLU PO ONE (06:49)
[2018-12-26] MEDS ORDERED: APRESOLINE IV ONE (06:55)
[2018-12-26 07:17] LABS: INFLUENZA A NEGATIVE (NEGATIVE); INFLUENZA B NEGATIVE (NEGATIVE)
--- NOTE | 2018-12-26 07:39 | Diag Imaging Result Doc PS360 ---
EXAM: CHEST-PORTABLE HISTORY: + sepsis protocol TECHNIQUE: Portable chest single view COMPARISON: 08/04/2018 FINDINGS: The lungs are well expanded. The heart is not enlarged. The vessels are not distended. There are no infiltrates. No effusion identified. There is a right jugular line on the current exam. No pneumothorax. IMPRESSION: No pneumonia. Electronically signed by Deyvi Mcdermott 12/26/2018 7:37 AM
[2018-12-26 07:57] LABS: BASO# 0.04 X1000 (0.0-0.2); BASO% 0.6 % (0.0-0.8); EOS# 0.27 X1000 (0.0-0.7); EOS% 3.8 % (0.0-10.0); HEMATOCRIT 36.8 % (42.0-52.0); HEMOGLOBIN 11.8 g/dL (14.0-18.0); LYMPH# 0.66 X1000 (1.2-3.4); LYMPH% 9.2 % (20.5-51.1); MCH 27.1 PG (27-31); MCHC 32.1 g/dL (33-37); MCV 84.4 FL (81-99); MONO# 1.29 X1000 (0.11-0.59); MPV 8.9 FL (7.4-10.4); NEUT# 4.92 X1000 (1.4-6.5); NEUT% 68.4 % (42.2-75.2); PLT 364 X1000 (130-400); RBC 4.36 XMIL (4.7-6.1); RDW 18.1 % (11.5-14.5); WBC 7.18 X1000 (4.8-10.8)
[2018-12-26 08:04] LABS: INR 1.04; PROTIME 14.1 Seconds (11.0-16.0); PTT 33.2 Seconds (22.3-41.8)
[2018-12-26 08:14] LABS: ALBUMIN 3.2 g/dL (3.5-5.0); CALCIUM 8.8 mg/dL (8.8-10.2); POTASSIUM 4.6 mmol/L (3.5-5.1); TOTAL BILIRUBIN 0.3 mg/dL (0.20-1.00); TOTAL PROTEIN 6.5 g/dL (6.3-8.3)
[2018-12-26 08:23] LABS: CREATININE 6.9 mg/dL (0.7-1.2)
[2018-12-26 08:43] LABS: CK INDEX 2.2 (0.0-2.5); CK-MB 4.91 ng/mL (0.0-5.0)
[2018-12-26] MEDS ORDERED: NS 1,000 ML IV ONE (08:44)
[2018-12-26] MEDS ORDERED: ASPIRIN PO ONE (08:49)
[2018-12-26] MEDS ORDERED: COREG PO ONE (08:53)
--- NOTE | 2018-12-26 11:29 | HISTORY AND PHYSICAL ---
PRIMARY CARE PHYSICIAN: Dr. Robert Leiva. CHIEF COMPLAINT: Sore throat, cough, fever, body aches, chills, and feeling lightheaded. HISTORY OF PRESENTING ILLNESS: This is a 38-year-old, male who presents to [facility] ER with complaints of having a sore throat, body aches, chills, subjective fever, feeling lightheaded, and some nausea with vomiting. States that his son had brought him to the emergency room on Wednesday. He was diagnosed with the flu and started on Tamiflu. The patient began feeling symptoms yesterday. His workup showed a temperature of 102.8 degrees, pulse 112, blood pressure 234/123. He states he was not able to take his morning medications due to the vomiting. His laboratory data showed influenza A and B were both negative. BUN was 35 with a creatinine of 6.9, and he is an end-stage renal disease patient on dialysis on Wednesday, Wednesday, and Wednesday. He was noted to have an elevated troponin at 0.482. He has had an elevation in his troponins in the past with the highest being 0.334 in August of 2018. Had a myocardial perfusion scan on 08/08/2018 and that was a normal post-stress myocardial perfusion scan with an estimated ejection fraction of 60%. His chest x-ray today showed no pneumonia but he will be admitted for further evaluation and treatment. PAST MEDICAL HISTORY: Hypertension, diabetes, DVT, pulmonary emboli, end-stage renal disease with dialysis on Wednesday, Wednesday, and Wednesday, peripheral vascular disease, and chronic noncompliance. PAST SURGICAL HISTORY: An IVC filter and a left toe amputation. FAMILY HISTORY: Reviewed and noncontributory. SOCIAL HISTORY: Currently lives with family. Denies any tobacco, alcohol, or illicit drug use. ALLERGIES: To morphine and sulfa drugs. HOME MEDICATIONS: A current list will need to be obtained and reconciled. We will restart after review. We will place an order for nursing to update and confirm home medications. LABORATORY DATA: Showed a white blood cell count of 7.18, hemoglobin 11.8, hematocrit 36.8, platelets 364,000. PT and INR of 14.1 and 1.04. Sodium 140, potassium 4.6, chloride 100, CO2 25, BUN of 35, creatinine 6.9, glucose 171. Creatine kinase of 219, CK-MB of 4.91, troponin of 0.482. Plasma lactate of 0.8. Influenza A and B were both negative. A chest x-ray showed no pneumonia. REVIEW OF SYSTEMS: He was positive for a subjective fever, chills, body aches, cough, sore throat, felt lightheaded, nausea, vomiting. Denied any abdominal pain, constipation, diarrhea, or burning or hurting with urination. PHYSICAL EXAMINATION: VITAL SIGNS: On arrival, he had a temperature of a 102.8 degrees, pulse 112, respirations 20, blood pressure 234/123, saturating 94% on room air. Blood pressure is down at this time to 175/100 after he received hydralazine 10 mg IV x1, Coreg 25 mg p.o. x1, and an aspirin 325 mg p.o. x1 in the emergency room. GENERAL: This is a 38-year-old, male lying in the bed and answers questions appropriately. HEENT: Normocephalic, atraumatic. Normal ENT inspection. Oropharynx and nares are clear. Eyes: Pupils are equal, round, and reactive to light and accommodation. Extraocular movements are intact. NECK: Normal inspection. Normal range of motion. LUNGS: Clear to auscultation bilaterally with equal lung expansion and chest wall movement. HEART: With regular rate and rhythm. No murmurs, rubs, or gallops. ABDOMEN: Soft, nontender, nondistended. Bowel sounds are present x4 quadrants. MUSCULOSKELETAL: He has 5/5 strength x4 extremities. NEUROLOGICAL: The cranial nerves 2-12 appear grossly intact. ASSESSMENT: 1. Flu. 2. Accelerated hypertension. 3. Elevated troponin. 4. Diabetes type 2. PLAN: He will be admitted to the [facility]. Placed on telemetry. O2 per protocol. We will consult nephrology and cardiology. We will do serial cardiac enzymes x3 sets. We will place him on Tamiflu 75 mg p.o. b.i.d. and he received the first dose in the emergency room, Tylenol 650 mg p.o. q.4 hours p.r.n. for fever or pain, and Zofran 4 mg IV q.4 hours p.r.n. Pattern of blood sugars with sliding scale insulin. We will recheck a CBC and BMP in the a.m. Place him on a renal diet. Further orders after seen by attending and consultants. Dictated by WONG Gutierrez for Greg Ramos MD cc: WONG Gutierrez MD Gregory S. Cheatham, MD
[2018-12-26 11:43] LABS: BILIRUBIN URINE NEGATIVE (NEGATIVE); BLOOD URINE 1+ (NEGATIVE); CLARITY CLEAR (CLEAR); COLOR YELLOW; KETONE URINE NEGATIVE (NEGATIVE); LEUKOCYTES URINE NEGATIVE (NEGATIVE); NITRITE URINE NEGATIVE (NEGATIVE); PH URINE 6.5; UROBILINOGEN URINE NORMAL
[2018-12-26 11:49] LABS: URINE EPITHELIAL CELLS <10 /HPF (<10); URINE RBC <10 /HPF (<10); URINE SOURCE CLEAN CATCH; URINE WBC <10 /HPF (<10)
[2018-12-26] MEDS ORDERED: VANCOMYCIN IV PER PHARMACY MISC SCH (13:22)
[2018-12-26] MEDS ORDERED: ZOFRAN IV PRN (13:22)
[2018-12-26] MEDS ORDERED: TAMIFLU PO SCH (13:30)
--- NOTE | 2018-12-26 14:38 | EKG Report ---
Test Performed on : 12/26/2018 08:41:23 AM Test Reason : elev trop Blood Pressure : / mmHG Vent. Rate : 097 BPM Atrial Rate : 097 BPM P-R Int : 142 ms QRS Dur : 138 ms QT Int : 410 ms P-R-T Axes : 050 036 035 degrees QTc Int : 520 ms Normal sinus rhythm. Right bundle branch block Abnormal ECG When compared with ECG of 04-AUG-2018 16:16, No significant change was found Unconfirmed Result
--- NOTE | 2018-12-26 14:53 | PROGRESS NOTE ---
DATE: 12/26/2018 SUBJECTIVE: The patient came in with a fever and flu-like symptoms. His child, I think, recently had a flu. He is a dialysis patient. He states he has had a dialysis catheter infection, and he has been on an antibiotic that starts with a T, which sounds like he is supposed to have been on that for several weeks. He says he has also been started on Tamiflu. He was diagnosed with the flu on Wednesday. It sounds like he gets the antibiotic near the end of dialysis, and he has had a catheter infection that had to be removed, and this is a new catheter that he is being treated through. He usually sees Dr. Ward in [place]. OBJECTIVE: His physical exam was really not remarkable. Blood pressure elevated. Temp was 102.8 degrees. Physical exam was otherwise really unremarkable. Port site was in dressing, but it was not painful upon palpation. PROBLEM LIST: 1. Fever, presumably the flu, but certainly could be a line infection. He is a dialysis patient. He is at risk. He is currently getting treatment, but we do not know what. At this point, we will continue vancomycin as staphylococcus is still the most likely culprit for infection, and we will try to get records as soon as we can from [place] to see what he has been getting. I think it is reasonable to continue Tamiflu for the time being because he may have the flu, and we will follow. 2. Accelerated hypertension. We will continue regular medications. Adjust accordingly. 3. Elevated troponin. Not quite sure why this was analyzed. He denies shortness of breath. He denies chest pain. He had elevated troponins last admission, although they are a little bit higher today. CK and MB are normal. Will get Cardiology input, which I appreciate their frustration with troponin elevation in a patient who is a dialysis patient, but I am not sure what else we need to do. He reports that he has had infection in a pocket around his heart, and I am not sure if that is pericardial infection or maybe there was concern over endocarditis, which we may just go ahead and pursue echo just to evaluate for that, although at this point, he is not bacteremic. 4. Type 2 diabetes. We will follow blood sugars and follow closely. Important thing is to get records, and we will monitor. He is being transferred to [facility] because of dialysis needs, which he needs dialysis today. This is a [id number] encounter note with Judy Jeronimo. cc: Greg Ramos MD
[2018-12-26] MEDS ORDERED: TAMIFLU LIQUID PO SCH (16:00)
[2018-12-26] MEDS ORDERED: NON-FORMULARY MED PO SCH (16:15)
[2018-12-26] MEDS: CATAPRES PO SCH ×2 (16:28→16:58)
[2018-12-26] MEDS: COREG PO SCH (16:58)
[2018-12-26] MEDS: LONITEN PO SCH (16:58)
[2018-12-26] MEDS ORDERED: VANCOMYCIN 1 GM/NS 1 GM/250 ML IVPB IV SCH (17:00)
[2018-12-26] MEDS: HUMALOG SUBQ SCH (17:23)
[2018-12-26] MEDS: LASIX PO SCH (21:17)
[2018-12-26] MEDS: TYLENOL PO PRN (21:21)
[2018-12-26 21:33] LABS: CK INDEX 3.7 (0.0-2.5); CK-MB 7.58 ng/mL (0.0-5.0)
[2018-12-27] MEDS: HUMALOG SUBQ SCH ×5 (00:11→21:05)
[2018-12-27] MEDS ORDERED: TESSALON PO PRN (02:06)
[2018-12-27] MEDS ORDERED: PHENERGAN IV PRN (02:07)
[2018-12-27] MEDS ORDERED: SODIUM CHLORIDE 0.9% INJ PRN (02:07)
[2018-12-27] MEDS: CHLORASEPTIC SPRAY MT PRN ×3 (02:40→20:32)
[2018-12-27] MEDS: HALL'S COUGH LOZENGE MT PRN ×2 (03:50→05:04)
[2018-12-27] MEDS: TYLENOL PO PRN (05:05)
[2018-12-27] MEDS: COREG PO SCH ×2 (05:05→18:18)
--- NOTE | 2018-12-27 06:35 | NEPHROLOGY CONSULTATION ---
DATE: 12/26/2018 REASON FOR CONSULTATION: Evaluation and treatment. I was contacted initially by the ER physician, Dr. Hadley. HISTORY OF PRESENT ILLNESS: Mr. Arenas is a 38-year-old, man with diabetes, hypertension, history of pulmonary emboli. He has end-stage kidney disease and receives renal replacement therapy at [facility] in [place] every Wednesday, Wednesday, and Wednesday. His son was sick over the weekend and documented with flu. In the last 24 hours, he developed fever to 102.8, and nausea and vomiting, cough, shortness of breath. He did not take his blood pressure medicine and, consequently, his blood pressure was markedly elevated on admission. He was treated by the ER physician (Dr. Hadley) with IV hydralazine with improvement. He was admitted to the hospital under potential sepsis protocol and treated with empiric broad-spectrum antibiotics in addition to Tamiflu. He states he feels better already but is still ill. PAST MEDICAL HISTORY: As above. HOME MEDICATIONS: Include minoxidil, losartan, aspirin, carvedilol, insulin, hydralazine. ALLERGIES: Morphine, sulfamethoxazole, and trimethoprim. SOCIAL HISTORY: As above. FAMILY HISTORY: Otherwise noncontributory. REVIEW OF SYSTEMS: Otherwise noncontributory. PHYSICAL EXAMINATION: Vital Signs: Blood pressure 173/98, heart rate 86, respirations 18, afebrile. General: Middle-aged man, lying flat, in no distress. Skin: Warm and dry. HEENT: Conjunctivae are pink. Neck: Neck veins are not distended. Heart: Regular. No gallops. Lungs: Equal. No crackles. Abdomen: Soft, nontender. Bowel sounds are present. Extremities: Have no edema, clubbing, or cyanosis. IMPRESSION: 1. Sepsis syndrome. I have discussed the case with the emergency room staff and directly with Dr. Hadley. Antibiotics and antiviral treatment were chosen based on his renal dysfunction. 2. Endstage renal disease. Volume status is acceptable. He has no hyperkalemia or metabolic acidosis at this time. Given the hour, we will hold dialysis until tomorrow. 3. Hypertension, improving since his home medicines have been restarted. 4. Anemia, in target. cc: Fox Low MD
[2018-12-27] MEDS ORDERED: HEPARIN IV PRN (06:42)
[2018-12-27] MEDS ORDERED: TIGHT: 0.2 ML/HR FOR DIALYSIS MISC PRN (06:42)
[2018-12-27] MEDS ORDERED: NS 2,000 ML MISC PRN (06:42)
[2018-12-27 07:57] LABS: BASO# 0.03 X1000 (0.0-0.2); BASO% 0.4 % (0.0-0.8); EOS# 0.11 X1000 (0.0-0.7); EOS% 1.6 % (0.0-10.0); HEMATOCRIT 36.1 % (42.0-52.0); HEMOGLOBIN 11.1 g/dL (14.0-18.0); LYMPH% 17.7 % (20.5-51.1); MCH 26.7 PG (27-31); MCHC 30.7 g/dL (33-37); MONO# 1.11 X1000 (0.11-0.59); MONO% 16.3 % (1.7-9.3); NEUT# 4.34 X1000 (1.4-6.5); PLT 304 X1000 (130-400); RBC 4.15 XMIL (4.7-6.1); RDW 18.1 % (11.5-14.5); WBC 6.79 X1000 (4.8-10.8)
--- NOTE | 2018-12-27 08:10 | EKG Report ---
Test Performed on : 12/27/2018 07:45:24 AM Test Reason : NON ST HI Blood Pressure : / mmHG Vent. Rate : 093 BPM Atrial Rate : 093 BPM P-R Int : 150 ms QRS Dur : 134 ms QT Int : 390 ms P-R-T Axes : 061 034 037 degrees QTc Int : 484 ms Normal sinus rhythm. Right bundle branch block Abnormal ECG When compared with ECG of 26-DEC-2018 08:41, (Unconfirmed) No significant change was found Confirmed by Pavel ROGERS, Cooper Velazquez ([id number]) on 12/27/2018 8:47:17 AM
[2018-12-27 08:18] LABS: CALCIUM 8.5 mg/dL (8.8-10.2); CREATININE 7.2 mg/dL (0.7-1.2); POTASSIUM 4.5 mmol/L (3.5-5.1)
[2018-12-27 08:33] LABS: C REACTIVE PROT QUANT 33.9 mg/L (0.00-5.00)
[2018-12-27] MEDS ORDERED: VIBATIV IV SCH (09:00)
[2018-12-27 09:03] LABS: SED RATE 32 mm/hr (0-15)
[2018-12-27] MEDS: CATAPRES PO SCH ×3 (10:15→18:18)
--- NOTE | 2018-12-27 10:58 | PROGRESS NOTE ---
DATE: 12/27/2018 ADDENDUM REPORT I discussed the case with Dr. Low, who communicated with Dr. Ward. 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 This is being managed by Dr. Feliciano, Infectious Diseases. They are treating for presumed endocarditis, but there was no vegetation noted on the valves. It was just on the cap tip. He had had vancomycin for 2 months before this treatment, and they were concerned over resistance to daptomycin so he is being treated with telavancin. He does not have true endocarditis at least based on the echo currently, but they are treating presumably for endocarditis, just because I guess of persistent bacteremia. We will continue to see how things go. I did order a limited echocardiogram. Dr. Pruitt is in charge of the case. I defer to him about other treatments, but note is for clarification on the case of his bloodstream infection. cc: Greg Ramos MD
--- NOTE | 2018-12-27 10:58 | CARDIOLOGY CONSULTATION ---
DATE: 12/26/2018 CONSULTATION REQUESTED BY: The hospitalist service. REASON: Elevated troponin levels, suspect myocardial infarction. The primary service is nephrology service in consult DR. Ward and the primary physician here in [place] is DR. Leiva. HISTORY: Mr. Arenas is a 38-year-old black gentleman who presented to the ER just today at 6:39 in the morning complaining of diffuse body aches, feeling unwell, malaise, cough , sore throat. He says that his son has the flu and he was just started on Tamiflu the day prior to presentation. In the ER, they did a chest x-ray that shows no pneumonia. EKG shows right bundle branch block sinus rhythm. That EKG has not changed when compared to prior 1 that we have on record. Of note, his BUN was 35, creatinine was 6.97, potassium were normal. Troponin levels were checked 3 times. They are elevated at 0.482, 0.451 and 0.507. When the patient was admitted to this hospital in August 2018 they also checked troponin levels reflexively and at that time his troponin levels were 0.33, 0.310 and 0.305. At that time, tests were done including a myocardial perfusion stress test which I read on 08/05/2018 and showed ejection fraction of 67% with no wall motion abnormality. A myocardial perfusion stress test done on August 08 showed normal post-stress myocardial perfusion imaging study with normal left ventricular ejection fraction. The patient denies having any chest pain and he does not have any of the usual symptoms suspected with acute myocardial infarction. The measurement of the troponin was done I think as part of a battery of tests and not guided by clinical information. PAST HISTORY: Positive for advanced renal failure, he is on dialysis. He has had 2 dialysis accesses created 1 in August 2018 another one in November 2018 the 1st one by Dr. Christensen, the 2nd one by Dr. Johnston. The reason why the 2nd one had to be done is because there was a suspicion of MRSA bacteremia arising from the 1st one. He was hospitalized in [place] in August in the [facility] service and then again in November 2018. The patient says that he has been given multiple tests and nothing has been found in connection with having any kind of heart problem. The patient has a prior history of deep venous thrombosis and pulmonary embolism requiring insertion of inferior vena cava filter. Aside from the aforementioned dialysis access he has had amputation of the toe. 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 He stays at home. He has 2 children. FAMILY HISTORY: Mother had end-stage renal disease and from advanced renal failure. There is a stroke and hypertension in the family. ALLERGIES: Positive for he is allergic or intolerant to morphine and Bactrim. CURRENT HOME MEDICATIONS: Include carvedilol 25 every 12 hours, hydralazine 100 three times a day, insulin Lantus 60 units daily, lispro following a sliding scale, losartan 100 daily, lactulose 30 mL daily and acetaminophen. REVIEW OF SYSTEMS: Other than what I have just reported there is no positive for cardiovascular illness. No positive for pulmonary illness other than the acute cough that he just recently developed. No gastrointestinal complaints. No neurological or psychiatric illness. No hearing or visual or ENT related complaints. No major hematological condition. No immunological disorder. He says that he has had a flu before. He has tested negative for influenza in the ER. PHYSICAL EXAM: Blood pressure 172/98, temperature 98.1 degrees, pulse 86, respirations 16. He is awake, alert, oriented, no distress.HEENT: Unremarkable. He appears to be acutely ill. He appears to be somewhat febrile. Chest: Diminished breath sounds diffusely. Patient gets into spells of coughing. Nothing productive at all. No rhonchi or wheezes are heard. Heart: Sounds are regular and rhythmic I do not hear a rub or gallop. Abdomen: Nontender. Extremities: Showed palpable pulses in the feet. No obvious edema. Neuro: Nonfocal. Moves 4 extremities. IMPRESSION: 1. Patient presenting with what appears to be an acute upper respiratory infection probably viral, question of flu. 2. Abnormal cardiac enzymes. This is really in his particular case quite nonspecific. Four months ago he was already tested for the same reason with an echocardiogram and a nuclear stress test and nothing came back abnormal. His EKG has not changed. The only thing that has changed is that his creatinine is twice the value of creatinine that he had when he was previously seen and possibly that would explain why his troponin is still persistently elevated. On August 04 when he was seen and August 05 his creatinine averages 3.0, now his creatinine 6.9. 3. History of hypertension which is suboptimally controlled. 4. History of diabetes mellitus. 5. History of previous deep venous thrombosis with pulmonary embolism that required insertion of inferior vena cava filter. RECOMMENDATION: 1. From cardiology viewpoint I will do a limited echocardiogram to make sure that his ejection fraction has not changed. I would do a followup EKG. If the EKG and the echocardiogram are similar to the studies that were done 4 months ago then I would stop right there and would not do any more testing along those lines. 2. I will request inflammatory markers to see if he could have some form of pericarditis. Because of the fact that his creatinine has doubled, he could have uremic pericarditis. 3. The other possibility is septicemia arising from an infected indwelling catheter. That may be something to bear in mind.Patient had MRSA infection of indwelling catheter with "vegetation" noted at the tip of catheter by JOSE done at . 4. We will review the tests and furnish additional advice. Again if the echocardiogram does not show any significant abnormality , I will not do any more cardiac testing on the patient. cc: Oc Lincoln MD MTDD
[2018-12-27] MEDS ORDERED: NS IV SCH (11:00)
[2018-12-27] MEDS ORDERED: [UNRECOGNIZED DRUG - OTHER] IV SCH (11:00)
[2018-12-27] MEDS: COZAAR PO SCH (13:28)
[2018-12-27] MEDS: LONITEN PO SCH (13:28)
[2018-12-27] MEDS: LASIX PO SCH ×2 (13:29→20:31)
--- NOTE | 2018-12-27 14:13 | INFECTIOUS DISEASE CONSULT REP ---
DATE: 12/27/2018 CONCLUSION: The patient has methicillin-resistant Staphylococcus aureus endocarditis. The endocarditis was caused by the patient's by the patient's dialysis catheter causing infection in the heart itself. I talked to Dr. Carlos Feliciano, who is treating the patient for endocarditis. He told me that they had tried to treat the patient with vancomycin and daptomycin, and each time it failed and then Dr. Feliciano decided to put the patient on telavancin. RECOMMENDATIONS: As mentioned above, the patient has been receiving telavancin after each dialysis because of, according to Dr. Feliciano, failure of vancomycin and daptomycin to clear the infection. I discussed with Dr. Feliciano and the patient that telavancin can have side effects, and that specifically, it is not to be used after dialysis, but Dr. Feliciano is using it because the other 2 medications mentioned above, according to him, did not clear the infection. I told the patient that it can affect kidneys and hearing and balance and also cause nausea and vomiting, which the patient says he has after each time he gets telavancin. Finally, after talking to Dr. Feliciano, the patient has decided to go ahead with telavancin in order to clear the infection, even though there may be some significant side effects. Specifically, Dr. Feliciano and I talked, and he recommended the dose to be that he has been giving the patient is 750 mg of telavancin after each dialysis. He recommended that dose, and I have ordered that while the patient is in [facility]. DISCUSSION: Please see above. The patient this time was admitted to the hospital because he had some coughing, nausea, diarrhea, and fever. He feels it feels better now. He said he was given a dose of Tamiflu yesterday. However, here at [facility], the swab for influenza A and B are both negative. Therefore, I do not think we will need to treat with Tamiflu, and right now after I have examined the patient, he does not look like now that the flu is continued if he ever had it at one time. DIAGNOSTIC STUDIES: His studies thus far: His CBC shows a white count of 6790, hemoglobin 11.1, and platelet count of 304,000. The patient's absolute neutrophil count was 4340. The patient's creatinine is 7.2, the GFR is 10. The patient's liver function studies are normal. The creatine kinase level is 161. The patient's chest x-ray shows no pneumonia. REVIEW OF SYSTEMS: Eyes and ears: Patient does not have any trouble seeing or hearing. Neck: No stiffness. Respiratory: The patient did have a cough, but it has cleared, and he is not bringing up any respiratory secretions. Gastrointestinal: See Present Illness. Genitourinary: The patient does pass urine, even though he is on dialysis, and he has not been having dysuria or a foul smell to his urine. Integument: No rash. Endocrine: Patient does have diabetes, but not thyroid disease. Neurologic: The patient does not have seizures, and he has not recently lost any motor or sensory function. PREVIOUS HOSPITALIZATIONS AND OPERATIONS: He has had 2 dialysis catheters placed and removed, and currently his 3rd dialysis catheter is in the right side of the chest. He had inserted an IVC filter. 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 He has had eye surgery. MEDICAL DISEASES: Positive for diabetes mellitus, hypertension, and end-stage renal disease. INFECTIOUS DISEASE HISTORY: Positive for pneumonia. FAMILY HISTORY: Positive for diabetes mellitus and hypertension. SOCIAL HISTORY: The patient lives in [place]. He is . 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 He does not have any pets at home. He does not smoke cigarettes, drink alcoholic beverages, or abuse drugs. ALLERGIES: He is allergic to morphine and Septra. The patient told me that he is allergic to clonidine. HOME MEDICATIONS: Tylenol, Coreg, Apresoline, insulin, losartan, and promethazine. PHYSICAL EXAMINATION: Vital Signs: Temperature is 99.5 degrees, pulse 92, respirations 16, blood pressure 129/68. Height/weight: The patient is 5 feet 11 inches tall, weighs 210 pounds. General: This is an obese, young male. He is in no acute distress. Head, eyes, ears, nose, and throat: He can hear my spoken words, see near objects. He does not have any white coating on his tongue. Neck: No meningismus. Thorax: The patient has a tunneled dialysis catheter on the right upper chest. Lungs: Clear to auscultation. Cardiovascular: Regular heart rate. Abdomen: Soft, nontender. Neurologic: Patient is alert. He can move his extremities. There is no tremor. Thank you for the consult. Maury#: [id number] cc: Drew Willis MD
[2018-12-27] MEDS ORDERED: NON-FORMULARY MED PO ONE (15:00)
--- NOTE | 2018-12-27 15:14 | NEPHROLOGY PROGRESS NOTE ---
DATE: 12/27/2018 SUBJECTIVE: He states he feels better this morning. No more chills and fevers. Still coughing. OBJECTIVE: Vital Signs: Blood pressure 129/68, heart rate 92, respirations 16, temperature 99.5 degrees. General: No acute distress. Skin: Warm and dry. HEENT: Conjunctivae are pink. Neck: Neck veins are not distended. Heart: Regular with systolic murmur present. Lungs: Equal. No crackles. Abdomen: Soft, nontender. Bowel sounds present. Extremities: No edema, clubbing, or cyanosis. IMPRESSION: Chronic kidney disease 5D. He will have his routine hemodialysis today. Two K bath. We will use his outpatient dry weight as our target. Electrolytes, acid-base, anemia all in target. cc: Fox Low MD
[2018-12-27] MEDS ORDERED: LACTULOSE PO PRN (15:45)
[2018-12-27] MEDS ORDERED: NS IV ONE (16:00)
[2018-12-27] MEDS ORDERED: [UNRECOGNIZED DRUG - OTHER] IV ONE (16:00)
--- NOTE | 2018-12-27 17:21 | PROGRESS NOTE ---
DATE: 12/27/2018 SUBJECTIVE: Patient reports feeling fine. No fever during the last 24 hours. He is still having some general malaise. OBJECTIVE: Vital Signs: Temperature 98.7, heart rate 86, respiratory rate 16, blood pressure 148/70, O2 saturation 94% on room air. General: This is a 38-year-old male, lying in bed, in no acute distress. HEENT: Head is normocephalic and atraumatic. Neck: No JVD noted. No carotid bruits. No lymphadenopathy. No thyromegaly. Cardiovascular: S1, S2 heard. No murmurs, gallops, or rubs. Regular rate and rhythm. Respiratory: Clear bilaterally to auscultation. No work of breathing or use of accessory muscles. Abdomen: Soft, nontender to palpation. Bowel sounds present. No organomegaly. Extremities: No clubbing, cyanosis, or edema. Peripheral pulses present in both legs. Neurological: Patient alert, oriented x3. Moves 4 extremities. LABORATORY DATA: Reviewed. ASSESSMENT: 1. Methicillin-resistant Staphylococcus aureus (MRSA) endocarditis, and that is reason why this patient has been on telavancin. According to Dr. Willis, the patient has been treated with vancomycin and daptomycin, but apparently he failed treatment so that is why he is on that medication. The patient is going to receive as per his primary infectious disease doctor, Dr. Feliciano, 750 mg IV each dialysis. We will continue with the same management. 2. Elevated troponins. The patient has been evaluated by Cardiology, and they are going to do an EKG and limited view echocardiogram. If those are normal, they are not going to pursue with any further treatment. 3. Diabetes mellitus, type 2. We will continue with sliding scale insulin. 4. Accelerated hypertension. At this point, the blood pressure is under control. We will continue with the same medication. cc: Dedrick Lara MD
[2018-12-28] MEDS ORDERED: INSULIN PEN NEEDLES ONE (05:54)
[2018-12-28] MEDS: HUMALOG SUBQ SCH ×3 (06:19→17:33)
[2018-12-28] MEDS: COREG PO SCH ×2 (06:19→17:38)
[2018-12-28 07:02] LABS: BASO# 0.02 X1000 (0.0-0.2); BASO% 0.5 % (0.0-0.8); EOS# 0.14 X1000 (0.0-0.7); EOS% 3.2 % (0.0-10.0); HEMATOCRIT 37.3 % (42.0-52.0); HEMOGLOBIN 11.3 g/dL (14.0-18.0); LYMPH# 1.36 X1000 (1.2-3.4); LYMPH% 30.6 % (20.5-51.1); MCH 26.2 PG (27-31); MCHC 30.3 g/dL (33-37); MCV 86.5 FL (81-99); MONO# 0.71 X1000 (0.11-0.59); MPV 9.3 FL (7.4-10.4); NEUT# 2.21 X1000 (1.4-6.5); NEUT% 49.7 % (42.2-75.2); PLT 280 X1000 (130-400); RBC 4.31 XMIL (4.7-6.1); RDW 17.9 % (11.5-14.5); WBC 4.44 X1000 (4.8-10.8)
[2018-12-28 07:20] LABS: ALBUMIN 2.7 g/dL (3.5-5.0); CALCIUM 8.1 mg/dL (8.8-10.2); CREATININE 5.3 mg/dL (0.7-1.2); PHOSPHORUS 5.6 mg/dL (2.7-4.5)
[2018-12-28] MEDS ORDERED: TIGHT: 0.2 ML/HR FOR DIALYSIS MISC PRN (08:29)
[2018-12-28] MEDS ORDERED: NS 2,000 ML MISC PRN (08:29)
[2018-12-28] MEDS ORDERED: HEPARIN IV PRN (08:29)
[2018-12-28] MEDS: LASIX PO SCH (08:30)
[2018-12-28] MEDS: COZAAR PO SCH (08:30)
[2018-12-28] MEDS: LONITEN PO SCH (08:30)
[2018-12-28] MEDS ORDERED: BASAGLAR SUBQ SCH (09:00)
--- NOTE | 2018-12-28 09:44 | ECHO REPORT ---
ORDER DATE: 12/27/2018 MEASUREMENTS: Left ventricular end-diastolic 5.1, end-systolic diameter 3.2, septal thickness 1.8, posterior wall thickness 1.7, aortic root 3.5, left atrium 3.8. SUMMARY: 1. Adequate quality study. 2. Aortic valve is trileaflet and opens normally on 2-dimensional images. Peak gradient across the aortic valve is less than 10 mmHg. Mitral, tricuspid, and pulmonic valves are without evidence of structural abnormality with trace tricuspid regurgitation. The aortic root is normal in size. 3. Normal left ventricular chamber size with moderate concentric left ventricular hypertrophy demonstrated. The estimated left ventricular ejection fraction appears to be at least 65%. No regional wall motion abnormalities are evident. The left atrium is upper normal in size. The right atrium and right ventricle are normal in size with grossly preserved right ventricular systolic function. 4. No pericardial effusion. The posterior parietal pericardium appears moderately thickened. 5. Appearance of inferior vena cava suggests normal central venous pressure. cc: MD Greg Palmer MD
--- NOTE | 2018-12-28 12:56 | NEPHROLOGY PROGRESS NOTE ---
DATE: 12/28/2018 SUBJECTIVE: He states he feels much better today. No fever. No shortness of breath. Still coughing. Hoping for discharge. OBJECTIVE: Vital Signs: Blood pressure 157/87, heart rate 78, respirations 18, afebrile. General: In no acute distress. Skin: Warm and dry. Conjunctivae are pink. Neck: Neck veins are not distended. Heart: Regular. Lungs: Equal. No crackles. Abdomen: Soft, nontender. Bowel sounds present. Extremities: No edema, clubbing or cyanosis. IMPRESSION AND PLAN: Chronic kidney disease 5D. Volume status, electrolytes, acid base all in target. We will dialyze a short treatment today to get him back on his schedule. Okay for discharge from my perspective. cc: Fox Low MD
[2018-12-28] MEDS ORDERED: DEMEROL IV PRN (14:46)
--- NOTE | 2018-12-28 14:57 | PROGRESS NOTE ---
DATE: 12/28/2018 SUBJECTIVE: The patient reports feeling fine. No fever over the last 48 hours. No nausea and vomiting reported. OBJECTIVE: Vital Signs: Temperature 98.6 degrees, heart rate 82, respiratory rate 18, blood pressure 141/81, O2 saturation 98% on room air. General: This is a 38-year-old male, lying in bed, in no acute distress. Cardiovascular: S1, S2 heard. No murmurs, gallops, or rubs. Regular rate and rhythm. Respiratory: Clear bilaterally to auscultation. No work of breathing, no using accessory muscles. Abdomen: Soft. Nontender to palpation. Bowel sounds present. No organomegaly. Extremities: No clubbing, cyanosis, or edema. Peripheral pulses present in both legs. Neurological: Patient is alert and oriented x3. Moves 4 extremities. LABORATORY DATA: Reviewed. ASSESSMENT AND PLAN: 1. Methicillin-resistant Staphylococcus aureus endocarditis. The reason why this patient was admitted to the hospital was fever and endocarditis. Even though this patient was on antibiotics, the fact that he developed fever makes us think about possible flu. That condition has been ruled out. The patient has not had any fever during the last [address] Willis is following this patient and basically, he is continuing the doses that he has been receiving before coming here, in this case was telavancin 750 mg IV before each dialysis. The patient is doing fine. Blood cultures are negative so far. So, tomorrow is going to be day 3 of blood culture that have been at admission in the ER are negative, I think it will be reasonable to discharge him. 2. Elevated troponins, most likely related to chronic kidney disease. Limited view echo did not show anything abnormal and EKG did not show any major changes, so Cardiology is not planning to do any more further workup. 3. End-stage renal disease, on dialysis. Patient receiving routine dialysis here. We will continue to monitor. 4. Accelerated hypertension. Blood pressure is under control. We will continue with same management. 5. Disposition. I think if the patient's blood cultures are negative tomorrow and fever since admission, I think this patient can be discharged safely back home. cc: Dedrick Lara MD
[2018-12-28 16:05] VITALS: BP 158/82
[2018-12-28] MEDS ORDERED: NON-FORMULARY MED PO ONE (17:00)
[2018-12-28] MEDS ORDERED: [UNRECOGNIZED DRUG - OTHER] IV ONE (17:00)
[2018-12-28] MEDS ORDERED: NS IV ONE (17:00)
--- NOTE | 2018-12-28 18:41 | INFECTIOUS DISEASE PROGRESS NO ---
DATE: 12/28/2018 PRESENT ILLNESS: Mr. Arenas has been treated for a methicillin-resistant Staphylococcus aureus endocarditis by Dr. Carlos Feliciano in [place]. He was admitted here due to fever and concern that he might have the flu; however, his flu swab was negative and he has been afebrile for the last 24 hours. MEDICATIONS: He has been receiving telavancin 750 mg IV after each dialysis treatment. PHYSICAL EXAMINATION: Vital Signs: Temperature is 98.2 degrees, pulse rate 81 , respiratory rate 18, blood pressure 158/82, O2 saturation 100% on room air. General: This is a chronically ill- appearing middle-aged gentleman. He is sitting up in bed, currently in no acute distress. HEENT: Atraumatic, normocephalic. Oral mucous membranes are pink and moist. Conjunctivae are pink. Neck: Supple. Trachea is midline. Cardiovascular: Heart rate and rhythm are regular. Normal sinus rhythm on the monitor. Pedal and radial pulses are palpable bilaterally. Respiratory: Lung sounds are clear to auscultation. Abdomen: Soft, round, and nontender. Bowel sounds are active. Neurologic: He is awake, alert, oriented, and able to ambulate without assistance. INT: Skin is warm and dry. There is a dialysis catheter in place to the right chest. Site is without edema, erythema or drainage to the site. DIAGNOSTIC STUDIES: Today his white count is 4.44, hemoglobin 11.3, platelet count 280,000. Creatinine is 5.3, GFR 15. Blood cultures x3 have all showed no growth after 48 hours. Also his echocardiogram did not indicate or mention endocarditis. ASSESSMENT AND PLAN: Mr. Arenas is feeling better today and has not had a fever. Also his blood cultures have all been negative. He is anxious to go home. He has been previously treated by Dr. Carlos Feliciano for methicillin-resistant Staphylococcus aureus endocarditis. He will be receiving 1 dose of telavancin this evening to follow up his dialysis which he has had today. I have spoken with Dr. Hoffman, and he plans on going ahead and discharging the patient after his medication this evening. Upon discharge, he will follow up with Dr. Feliciano and will continue his telavancin as ordered by him. The flu swab on this admission was negative so he will not need to take Tamiflu on discharge. These plans have been discussed with and recommended by Dr. Willis. COMORBIDITIES: For Mr. Arenas include end-stage renal disease with hemodialysis, and diabetes mellitus. Dictated by WONG Chou for Drew Willis MD This chart was documented by, WONG Chou and accurately reflects the services performed, treatment plan and medical decisions as attested by the providers signature Drew Willis MD. cc: Drew Willis MD [facility]
--- NOTE | 2018-12-29 00:29 | DISCHARGE SUMMARY ---
ADMISSION DATE: 12/26/2018 DISCHARGE DATE: 12/28/2018 CONSULTATIONS: 1. Dr. Oc Lincoln with Cardiology. 2. Dr. Fox Low with Nephrology. 3. Dr. Drew Willis with Infectious Disease. PERTINENT PROCEDURES: 1. Initial chest x-ray no pneumonia. 2. Echocardiogram showed LVH with an EF of 65%. No pericardial effusion. DISCHARGE DIAGNOSES: 1. 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 The patient has been getting treatment with telavancin. This is being managed by Dr. 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 There is no vegetation noted on the bowels. He had vancomycin for 2 months prior to this treatment. There was concern over resistance to daptomycin, so he is being treated with the telavancin. Again they are treating presumably for endocarditis secondary to persistent bacteremia. 2. Chronic kidney disease stage 5 on hemodialysis. He has been followed by Dr. Low and continued on his regular schedule. His outpatient dry weight is at target. Electrolytes and acid-base and anemia are all in target. 3. Flu has been ruled out. 4. Elevated troponin in the setting of chronic kidney disease. He has also been evaluated by Cardiology, they are not planning any further procedures. He was noted to have a creatinine value twice its normal, and had a recent echocardiogram and perfusion scan. He was also continued on his intravenous antibiotics after Dr. Willis and Dr. Low spoke with Dr. Ward and Dr. Feliciano. 5. Accelerated hypertension, blood pressure is now under control. HOSPITAL COURSE: Briefly, Mr. Arenas is a 38-year-old male who presented to [facility] ER with complaints of a sore throat, body aches, chills, subjective fever, feeling lightheaded, and some nausea and vomiting. He had brought his son to the ED on Wednesday with diagnosis of flu and started on Tamiflu. He started feeling the symptoms on Wednesday, he woke up with a temperature of 102.8, pulse of 112, a blood pressure of 234/ 123. He was not able to take his morning medications secondary to vomiting. His laboratory data for his influenza A and B were both negative. His BUN was 35, with a creatinine of 6.9. He has end-stage liver disease on dialysis Wednesday, Wednesday, Wednesday. He was also noted to have an elevated troponin of 0.482, his highest in the past being 0.334 in August of 2018 where he had a myocardial perfusion scan in August, and a normal post stress test with an EF of 60%. His chest x- ray showed no pneumonia. He was admitted for treatment of the flu and transferred over to [facility] to resume his hemodialysis and be evaluated by Cardiology for his elevation in troponins. In the interim they found out that he was being treated for MRSA bacteremia as well as treating him for presumed endocarditis, but there is no vegetation on his current echocardiogram. He had been on vancomycin 2 months prior to this treatment and they were concerned over resistance to daptomycin, so he was treated with telavancin which was continued throughout his hospital stay. Dr. Low spoke with Dr. Ward and Dr. Willis with Infectious Disease spoke with Dr. Feliciano, he was to resume his IV antibiotics while at [facility]. He is now afebrile and his white count remains normal. Cardiology did not recommend any further testing, and he will be discharged back home to continue to follow with Dr. Ward and Dr. Feliciano. DISCHARGE VITAL SIGNS: Temperature is 98.2 degrees, heart rate 81, respirations 18, blood pressure 158/82, O2 is 100% on room air. DISCHARGE DIET: Renal. DISCHARGE MEDICATIONS: 1. IV antibiotics per Dr. Feliciano. 2. Apresoline 100 mg p.o. t.i.d. 3. Lantus 16 units subcutaneous daily. 4. Humalog Quick Pen, see protocol for subcutaneous p.r.n. 5. Lactulose 30 mL p.o. daily p.r.n. 6. Losartan potassium 100 mg p.o. daily. 7. Promethazine 25 mg p.o. t.i.d. p.r.n. 8. Tylenol 650 mg p.o. q.6 hours p.r.n. 9. Coreg 25 mg p.o. q.12 hours. FOLLOW-UP: Mr. Arenas is being discharged back home. He is to continue to follow up with his Primary Infectious Disease as well as his kidney doctor Dr. Ward. He is to continue on his regular scheduled hemodialysis, and to continue to get his IV antibiotics for his persistent bacteremia as well as presumed endocarditis treatment. He can return to the ED or call 911 for any worsening of symptoms. Dictated by WONG Banerjee for Dedrick Lara MD Addendum: Patient seen and examined by myself. Agree with WONG note. It reflects my assessment and plan. Patient is being discharged in stable condition and will be seen by his primary ID Dr. Feliciano in a week. cc: MD Carlos Post DO Gregory S. Cheatham, MD [facility]ITAL[facility]
== END 2018-12-28 19:24 | disposition home or self-care (01) ==
LOC: P.ED 06:26 → 3N 06:27 → SUATTDRO 06:27 → INTOOBSV 06:27 → 3N 14:31
PROVIDERS: ATTEND Internal Medicine
CPT/HCPCS: 71010; 71045; 80048; 80053; 80069; 81001; 82550; 82553; 82728; 82948; 83605; 84484; 85025; 85379; 85610; 85651; 85730; 86140; 86431; 87040; 87275; 87276; 87804; 93005; 93010; 93306; 94761; 96361; 96365; 96366; 96367; 96375; 96376; 99285; A9270; G0378; J0360; J1644; J2175; J2543; J2550; J3095; J3370; J7030; XXXXX

== ENCOUNTER 2019-03-04 13:34 | Inpatient (IN) ==
[2019-03-04 15:07] LABS: BASO# 0.03 X1000 (0.0-0.2); BASO% 0.3 % (0.0-0.8); EOS# 0.24 X1000 (0.0-0.7); EOS% 2.5 % (0.0-10.0); HEMATOCRIT 37.3 % (42.0-52.0); HEMOGLOBIN 12.7 g/dL (14.0-18.0); IMM GRAN# 0.02 X1000 (0.0-0.04); IMM GRAN% 0.2 % (0.0-0.5); LYMPH# 1.28 X1000 (1.2-3.4); LYMPH% 13.4 % (20.5-51.1); MCH 27.9 PG (27-31); MCV 81.8 FL (81-99); MONO# 0.41 X1000 (0.11-0.59); MONO% 4.3 % (1.7-9.3); MPV 9.9 FL (7.4-10.4); NEUT# 7.55 X1000 (1.4-6.5); NEUT% 79.3 % (42.2-75.2); PLT 506 X1000 (130-400); RBC 4.56 XMIL (4.7-6.1); RDW 15.8 % (11.5-14.5); WBC 9.53 X1000 (4.8-10.8)
[2019-03-04 16:09] LABS: CALCIUM 8.8 mg/dL (8.8-10.2)
[2019-03-04 16:18] LABS: POTASSIUM 6.5 mmol/L (3.5-5.1)
[2019-03-04 16:19] LABS: CREATININE 6.2 mg/dL (0.7-1.2)
[2019-03-04] MEDS ORDERED: LOVENOX 1 MG/KG SUBQ ONE (16:26)
--- NOTE | 2019-03-04 16:30 | PROVIDER DOCUMENTATION ---
This chart was entered by Ann Marie Fairbanks Scribe, acting as scribe for Yusuf Cornejo CRNP. HPI-General Adult - General Chief Complaint: Return/Recheck Stated Complaint: BLOOD CLOT / LUNG Time Seen by Provider: 03/04/19 14:03 Source: patient Allergies/Adverse Reactions: Patient Allergies Allergy/AdvReac Type Severity Reaction Status Date / Time clonidine Allergy Severe ANAPHYLAXIS Verified 03/04/19 13:52 morphine Allergy Mild HIVES Verified 03/04/19 13:52 sulfamethoxazole Allergy Unknown Unknown Verified 03/04/19 13:52 [From Bactrim] trimethoprim [From Bactrim] Allergy Unknown Unknown Verified 03/04/19 13:52 Home Medications: Home Medication List Medication Instructions Recorded Confirmed Last Taken Type Acetaminophen [Tylenol] 650 mg PO Q6H PRN PRN tablet 11/22/17 12/26/18 Unknown Rx Insulin Glargine [Lantus] 16 units SQ DAILY 02/04/18 12/26/18 12/25/18 History Insulin Lispro [Humalog Kwikpen See Protocol SQ PRN PRN 02/04/18 12/26/18 Unknown History [id number]] Carvedilol [Coreg] 25 mg PO Q12H #60 tab 02/05/18 12/26/18 12/25/18 Rx Lactulose 30 ml PO DAILY PRN PRN 08/04/18 12/26/18 Unknown History Losartan Potassium 100 mg PO DAILY 08/04/18 12/26/18 12/25/18 History Promethazine HCl 25 mg PO TID PRN 08/04/18 12/26/18 Unknown History Hydralazine [Apresoline] 100 mg PO TID 12/26/18 12/26/18 12/25/18 History Amoxicillin/Pot Clavulanate 875 mg PO Q12HR #20 tab 02/17/19 Unknown Rx [Augmentin] Amoxicillin/Potassium Clav 1 ea PO DAILY #10 tab 02/17/19 Unknown Rx [Augmentin 500-125 Tablet] - History of Present Illness -Gen Adult Nature of Presenting Problems: 38 yom presents to ED cc started having mild chest pain in dialysis yesterday, came to ED told he has blood clots in his lungs but refused to be admitted. Pt reports he is back today at the urging of his doctor to be admitted. Pt denies chest pain today. Pt has hx of DM, kidney disease and HTN. Review of Systems - Adult - REVIEW OF SYSTEMS - ADULT Constitutional: reports: see HPI, other (wants to be admitted). denies: chills, fever, fatique Eyes: reports: no symptoms reported Ears, Nose, Mouth & Throat: reports: no symptoms reported Cardiovascular: reports: no symptoms reported Respiratory: reports: no symptoms reported Gastrointestinal: reports: no symptoms reported Genitourinary: reports: no symptoms reported Musculoskeletal: reports: no symptoms reported Integumentary: reports: no symptoms reported Neurological: reports: no symptoms reported Psychiatric: reports: no symptoms reported Endocrine: reports: no symptoms reported Hematologic/Lymphatic: reports: no symptoms reported Allergic/Immunologic: reports: no symptoms reported All Other Systems: Reviewed and Negative Past History - Adult - PAST MEDICAL HISTORY-ADULT Review of Records: reports: Nursing Assessment Review, Medications Reviewed, Social history reviewed & non-contributory. Major Childhood Illnesses: reports: denies history Cardiovascular: reports: blood clots, HTN Respiratory: reports: denies history Gastrointestinal: reports: denies history Obstetrical/Gynecological: reports: denies history Genitourinary: reports: denies history Musculoskeletal: reports: denies history Neurological: reports: denies history Psychiatric: reports: denies history Endocrine/Immune: reports: Diabetes Other Conditions: reports: denies history - PRIOR SURGERIES/PROCEDURES Surgical/Procedure History: reports: other (IVC filter) - PRIOR HOSPITALIZATIONS Prior Hospitalizations: reports: for other non-related - IMMUNIZATION STATUS Childhood Immunizations: See Nurse Assessment Flu Vaccine: See Nurse Assessment - FAMILY HISTORY Family History: reviewed, not pertinent Physical Exam-General - PHYSICAL EXAM-ADULT Initial Vital Signs Reviewed: Yes - CONSTITUTIONAL General Appearance: appears well, alert, no apparent distress. negative: anxious, combative - EYES Eyes: PERRL/EOMI, pink conjunctivae. negative: photophobia - HEAD, EARS, NOSE, MOUTH & THROAT HENMT: moist mucous membranes, normal ENT inspection. negative: angioedema - NECK Neck: non-tender, full range of motion, supple, normal inspection. negative: Brudzinski's sign, carotid bruit - RESPIRATORY Respiratory: chest non-tender, lungs clear, normal breath sounds, no pleuratic chest pain, no respiratory distress, no accessory muscle use. negative: crackles, rales, rhonchi - CARDIOVASCULAR Cardiovascular: normal peripheral pulses, regular rate, rhythm, no edema, no gallop, no JVD, no murmur. negative: bradycardia, tachycardia - GASTROINTESTINAL (ABDOMEN) Abdominal Exam: normal bowel sounds, non tender, soft, no organomegaly. negative: rigid, rebound, tenderness - LYMPHATIC Lymphatic: no adenopathy. negative: striations - MUSCULOSKELETAL Back Exam: normal inspection. negative: swelling Extremity: normal range of motion, normal inspection. negative: deformity - SKIN Integumentary: normal color, normal turgor, warm/dry. 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 negative: facial droop, focal weakness - PSYCHIATRIC Psych/Mental Status: normal mood/affect, normal thought content, normal thought process, oriented x 3. negative: anxious Progress - PLAN OF CARE/RESULTS Progress/Plan/Lab Results: Vital Signs - 8 hr 03/04/19 13:40 Temperature 98 F Pulse Rate 97 H Respiratory Rate 18 Blood Pressure 163/111 O2 Sat by Pulse Oximetry 97 Orders Category Date Time Status IV Insertion ORDERED Care 03/04/19 14:34 Active Nursing- Obtain EKG ONCE Care 03/04/19 14:34 Active BASIC METABOLIC PANEL [CHEM] Stat Lab 03/04/19 14:34 Ordered CBC WITH ELECTRONIC DIFF [HEME] Stat Lab 03/04/19 14:34 Uncollected PRO B-NATRIURETIC PEPTIDE Stat Lab 03/04/19 14:34 Uncollected TROPONIN T Stat Lab 03/04/19 14:34 Ordered EKG [EKG] Stat Ther 03/04/19 14:34 Ordered Result Diagrams: 03/04/19 14:58 03/04/19 14:58 - EKG 1 Time of EKG reading by physician:: 15:07 EKG Read and Signed by:: Darrell Carrizales EKG Interpretation (*Must complete 3 of following elements*): Abnormal Rate: 95 Rhythm: normal sinus QRS: RBB ST Wave: normal - CONSULTS/PCP/HOSPITALIST Notification #1 *Consult/PCP/Hospitalist*: Dr. Leiva Time Discussed: 16:28 Consult Disposition: Admit (Discussed pt labs, PE, and previous visit, he advised to admit the pt to the floor.) Departure - Departure Date of Disposition Decision: 03/04/19 Time of Disposition Decision: 16:29 DIAGNOSIS: Pulmonary embolism, Renal failure Disposition: ADMITTED INPATIENT 09 Certified Medical Emergency: Emergent Condition: Stable Referrals and Follow-Ups: Robert Leiva MD [Primary Care Provider] - - Critical Care Note This patient required my direct & personal management of CC.: No Attestation - Physician/ FELIPA Attestation Patient care was provided by Advanced Practice Provider:: Yes Advanced Practice Provider:: Yusuf Cornejo Advanced Practice Provider documentation review:: The Mid-level provider documentation, treatment plan and medical decision making was reviewed by the physician who agrees with all treatment and medical decision making by the MLP. The physician spent face to face time with patient:: No Advanced Practice Provider documentation review:: Supervising physician onsite and consulted in the evaluation and care of this patient. The physician did not have a face to face encounter with the patient. This chart was documented by the indicated scribe, (Ann Marie Fairbanks Scribe) and accurately reflects the services I performed and decisions made by , Yusuf Cornejo CRNP, as attested by the provider's signature.
[2019-03-04] MEDS ORDERED: KAYEXALATE PO ONE (17:01)
[2019-03-04] MEDS ORDERED: DUONEB (A & A) INH ONE (17:01)
[2019-03-04] MEDS ORDERED: CALCIUM GLUCONATE 1 GM in NS 50 ML IV ONE (17:02)
--- NOTE | 2019-03-04 17:05 | EKG Report ---
Test Performed on : 03/04/2019 3:07:28 PM Test Reason : sob Blood Pressure : / mmHG Vent. Rate : 095 BPM Atrial Rate : 095 BPM P-R Int : 148 ms QRS Dur : 140 ms QT Int : 382 ms P-R-T Axes : 047 047 032 degrees QTc Int : 480 ms Normal sinus rhythm. Right bundle branch block Abnormal ECG When compared with ECG of 03-MAR-2019 10:12, (Unconfirmed) No significant change was found Unconfirmed Result
[2019-03-04] MEDS ORDERED: LOVENOX ONE ×2 (17:45→17:53)
[2019-03-04] MEDS ORDERED: LABETALOL IV ONE (17:48)
[2019-03-04] MEDS ORDERED: LABETALOL ONE (17:56)
[2019-03-04] MEDS ORDERED: LOVENOX SUBQ ONE (17:58)
[2019-03-04] MEDS ORDERED: HUMULIN R IV ONE (18:31)
[2019-03-04] MEDS ORDERED: ZOSYN 0.75 GM in NS 50 ML IV SCH (18:45)
[2019-03-04] MEDS ORDERED: VANCOMYCIN IV PER PHARMACY MISC SCH (18:45)
[2019-03-04] MEDS ORDERED: HEPARIN IV PRN (19:20)
--- NOTE | 2019-03-04 19:43 | Diag Imaging Result Doc PS360 ---
EXAM: CHEST-PORTABLE HISTORY: re check TECHNIQUE: Portable chest single view COMPARISON: 03/03/2019 FINDINGS: The lungs are well expanded. The heart is mildly prominent. The vessels are not distended. There are no infiltrates. No effusion identified. There is a double lumen right jugular line. This is unchanged. No pneumothorax. IMPRESSION: Stable chest Electronically signed by Deyvi Mcdermott 03/04/2019 7:40 PM
--- NOTE | 2019-03-04 20:52 | HISTORY AND PHYSICAL ---
CHIEF COMPLAINT: Shortness of breath. HISTORY OF PRESENT ILLNESS: The patient is a 38-year-old male who presented to the ER. He actually came yesterday with chest pain and shortness of breath, diagnosed with pulmonary emboli but decided not to stay in the hospital and left AMA. He re-presented today, stating he is still having mild chest pain and shortness of breath, and states that his renal doctor had encouraged him to come back to the hospital. ALLERGIES: Clonidine, causing anaphylaxis; morphine; Bactrim. MEDICATIONS: Tylenol, Lantus 16, lisinopril 10 units daily, insulin p.r.n., Coreg 25 twice daily, lactulose, losartan 100 daily, promethazine p.r.n., hydralazine 100 t.i.d. REVIEW OF SYSTEMS: Positive shortness of breath. Denies any fevers, chills, cough or congestion. Denies any dysuria. No frequency or urgency. Denies constipation, melena or hematochezia. Denies any skin rashes. PAST MEDICAL HISTORY: History of DVTs, and I believe a pulmonary emboli in the past; history of hypertension; diabetes; chronic renal failure, on hemodialysis; has an IVC filter placed. FAMILY HISTORY: Positive for diabetes. SOCIAL HISTORY: The patient is on disability. He is , lives at home. PHYSICAL EXAMINATION: VITAL SIGNS: Reviewed. Temperature 98 degrees, pulse 97, respiratory rate 18, BP 163/111. Saturation 97% on room air. GENERAL: The patient is awake, alert, currently in no respiratory distress. Very pleasant to talk with. HEENT: Normocephalic. NECK: Supple. CARDIOVASCULAR: Regular rate. No murmurs. CHEST: Clear and nonlabored. ABDOMEN: Soft, nondistended. EXTREMITIES: Moves all extremities. No edema. NEUROLOGIC: No focal changes. PSYCHIATRIC: He does have flat affect. LABORATORY DATA: CBC normal. CMP with a potassium of 6.5, creatinine 6.2, glucose 349. ASSESSMENT: 1. Pulmonary emboli. 2. Chronic renal failure. 3. Hyperkalemia. 4. Diabetes. 5. Hypertension. PLAN: We will admit the patient to the hospital. He did receive Lovenox in the ER; therefore, we will wait and then will change to heparin drip. We will treat his potassium, and we will follow. cc: Robert Leiva MD MTDD
[2019-03-04] MEDS ORDERED: VANCOMYCIN 1 GM/NS 1 GM/250 ML IVPB IV ONE (21:00)
[2019-03-04] MEDS: LOKELMA POWDER PACKET PO SCH (21:15)
[2019-03-04] MEDS: ZOSYN 2.25 GM in NS 50 ML IV SCH (21:16)
[2019-03-04 21:40] LABS: AGAP 13; ALB/GLOB RATIO 0.9; ALBUMIN 3.2 g/dL (3.5-5.0); ALBUMIN 3.4 g/dL (3.5-5.0); ALKALINE PHOSPHATASE 114 U/L (32-122); BUN 41 mg/dL (8-22); CALCIUM 8.8 mg/dL (8.8-10.2); CHLORIDE 96 mmol/L (98-107); COSMO 289; CREATININE 6.3 mg/dL (0.7-1.2); DIRECT BILIRUBIN 0.1 mg/dL (0.00-0.20); ESTIMATED GFR 12; GLUCOSE 360 mg/dL (70-104); GOT 14 U/L (10-34); GPT 21 U/L (10-44); POTASSIUM 5.5 mmol/L (3.5-5.1); SODIUM 132 mmol/L (136-145); TCO2 23 mmol/L (25-35); TOTAL BILIRUBIN 0.17 mg/dL (0.20-1.00); TOTAL BILIRUBIN < 0.15 mg/dL (0.20-1.00); TOTAL PROTEIN 6.5 g/dL (6.3-8.3); TOTAL PROTEIN 7.2 g/dL (6.3-8.3)
[2019-03-04] MEDS: HUMALOG SUBQ SCH (22:19)
[2019-03-04 22:54] LABS: CALCIUM 8.7 mg/dL (8.8-10.2); POTASSIUM 5.1 mmol/L (3.5-5.1)
[2019-03-04 23:12] LABS: CREATININE 6.6 mg/dL (0.7-1.2)
[2019-03-05] MEDS: APRESOLINE IV PRN ×2 (00:12→13:57)
[2019-03-05] MEDS: LOKELMA POWDER PACKET PO SCH ×2 (01:44→07:45)
[2019-03-05] MEDS ORDERED: TYLENOL PO PRN (02:42)
[2019-03-05] MEDS ORDERED: VANCOMYCIN 1 GM/NS 1 GM/250 ML IVPB IV SCH (06:45)
[2019-03-05 07:15] LABS: BASO# 0.02 X1000 (0.0-0.2); BASO% 0.2 % (0.0-0.8); EOS# 0.18 X1000 (0.0-0.7); EOS% 2.1 % (0.0-10.0); HEMATOCRIT 35.4 % (42.0-52.0); HEMOGLOBIN 11.6 g/dL (14.0-18.0); LYMPH# 1.58 X1000 (1.2-3.4); MCHC 32.8 g/dL (33-37); MCV 82.5 FL (81-99); MONO# 0.34 X1000 (0.11-0.59); MONO% 3.9 % (1.7-9.3); NEUT# 6.64 X1000 (1.4-6.5); NEUT% 75.8 % (42.2-75.2); PLT 469 X1000 (130-400); RBC 4.29 XMIL (4.7-6.1); WBC 8.76 X1000 (4.8-10.8)
[2019-03-05 07:34] LABS: CALCIUM 9.1 mg/dL (8.8-10.2); PHOSPHORUS 5.9 mg/dL (2.7-4.5); POTASSIUM 5.2 mmol/L (3.5-5.1)
[2019-03-05] MEDS: HUMALOG SUBQ SCH ×4 (07:46→22:41)
[2019-03-05 07:50] LABS: CREATININE 7.3 mg/dL (0.7-1.2)
[2019-03-05] MEDS: ZOSYN 2.25 GM in NS 50 ML IV SCH (08:09)
[2019-03-05 09:24] LABS: INR 0.89; PROTIME 12.7 Seconds (11.0-16.0)
[2019-03-05] MEDS ORDERED: MAXIPIME 1 GM in NS 50 ML IV ONE (09:31)
[2019-03-05] MEDS ORDERED: MAXIPIME 1 GM in NS 50 ML IV SCH (09:45)
[2019-03-05] MEDS: LOVENOX SUBQ SCH (11:14)
[2019-03-05] MEDS: COZAAR PO SCH (11:14)
[2019-03-05 11:22] LABS: HEMOGLOBIN A1C 8.5 % (4.8-6.0)
[2019-03-05] MEDS ORDERED: HEPARIN 25,000 UNITS/D5W 25,000 UNIT/250 ML IV.SOLN IV SCH (12:00)
--- NOTE | 2019-03-05 12:22 | PROGRESS NOTE ---
DATE: 03/05/2019 SUBJECTIVE: This morning, Mr. Arenas refers to be doing fairly okay. Denies any complaint. He did have some chest discomfort, which has completely resolved. OBJECTIVE: Vital Signs: Blood pressure is 208/120, pulse of 104, respirations 22, temperature 97.9 degrees. General: Mr. Arenas is a 38-year-old gentleman. He is in bed. No distress. HEENT: Mucosa is pink and moist. Anicteric. Acyanotic. Neck: Supple. There is a right IJ tunneled dialysis catheter on the anterior chest wall. Respiratory: There is good air entry bilaterally. No crepitations. No rhonchi. Cardiovascular: Regular rate and rhythm. Abdomen: Soft, nontender. Bowel sounds present. Extremities: No pedal edema. Central Nervous System: The patient is awake, alert, oriented. There is no focal neurological deficit. LABORATORY DATA: WBC is 8.76, hemoglobin is 11.6, platelet count of 469,000. Chemistry is also reviewed. Sodium is 138, potassium is 5.2, chloride is 102, bicarb is 21. The patient has chronically elevated troponin levels. IMAGING STUDIES: CTA of the lungs, which was done on 03/03/2019, revealed a right lower lobe PE, cardiomegaly. There were also some tiny clusters/nodules in the right upper lobe, likely infectious in etiology. CURRENT MEDICATIONS: Have all been reviewed. ASSESSMENT: 1. Pulmonary emboli. This is about the third or the fourth time Mr. Arenas is having a venous thromboembolism event. He has an inferior vena cava filter placed. He has 2 episodes in the past of deep venous thrombosis and also pulmonary embolism separately as well. He used to be on Coumadin at some point. This was transitioned to Eliquis, and I understand he had a retina bleed, which according to him, it was attributed to the Eliquis. For now, he is going to be on daily dosing of Lovenox, at least for about 5 days, and get Coumadin bridged to have it therapeutic. Will give him 10 mg of Coumadin today and tomorrow, check on his INR, and then make changes accordingly. I think Mr. 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 2. Diabetes mellitus, insulin-dependent. We are going to continue with insulin regimen. 3. Chronic kidney disease stage 5. The patient is currently on dialysis on Wednesday, Wednesday, and Wednesday. He follows up with Dr. Ward in [place]. Will be seen over here by our Nephrology team. 4. Uncontrolled hypertension. We are going to restart his home medications and titrate for better blood pressure control. 5. Chronically elevated troponin noted. 6. 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 He is going to have an echocardiogram, blood cultures, and Infectious Disease has been consulted. In general, I think Mr. Arenas is clinically stable. He is currently actually asymptomatic. We are going to continue with the anticoagulants. He is also on antibiotics, and will follow up with further recommendations from the other subspecialties. Nephrology has been consulted as well. cc: Jun Talbert MD MTDD
[2019-03-05] MEDS: HYGROTON PO SCH (13:07)
[2019-03-05] MEDS: APRESOLINE PO SCH ×2 (13:13→17:59)
[2019-03-05] MEDS ORDERED: SODIUM CHLORIDE 0.9% INJ PRN (13:29)
[2019-03-05] MEDS: PHENERGAN IV PRN (13:57)
--- NOTE | 2019-03-05 14:35 | INFECTIOUS DISEASE CONSULT REP ---
DATE: 03/05/2019 CONCLUSION: The patient is admitted the hospital. He has a pulmonary embolus in the right lower lobe and the consult given to me was, do I think that this could be a septic embolus from endocarditis because the patient approximately 2 months ago was treated for endocarditis. I think that the right lower lobe pulmonary embolus and also some nodules were seen in the right upper lobe could be from endocarditis and if it is, then I would expect first of all that the patient's blood cultures will be positive and also on echocardiogram, vegetation would be expected to be seen also. RECOMMENDATIONS: I agree with treating the patient with vancomycin currently and I have discontinued Zosyn and put the patient on cefepime. Blood cultures already have been drawn and I am going to go ahead and order an echocardiogram to see if there is a vegetation present. If on the transthoracic echocardiogram there is no evidence of vegetation, then I think a transesophageal echocardiogram would be appropriate. DISCUSSION: The patient was admitted to the hospital. He had initially starting 3 days ago chest pain associated with shortness of breath. This occurred while he was on dialysis and he said that after dialysis stopped that both symptoms went away. The patient's CBC shows a white count of 8760, hemoglobin 11.6, and platelet count 469,000. Creatinine is 7.3. GFR is 10. Liver function study and CK are normal. Blood cultures are pending. Chest x-ray shows clear lung kaur. CT angiogram showed right lower lobe pulmonary embolus and in the right upper lobe, there were nodules thought to be secondary to infection. Blood culture results are pending. REVIEW OF SYSTEMS: Eyes and ears: Patient wears glasses but his hearing is good. Neck: He does not have any stiffness in it. Respiratory: See present illness. GI: No nausea, vomiting, or diarrhea. : No dysuria or flank pain. Cardiac: The patient did have chest pain, however, it went away when he was off of dialysis and he did not complain of having any palpitations. Integument: No rashes. Bones, joints, muscles: No swollen joints or muscle aching. Neurologic: No seizures and no recent history of loss of motor or sensory function. PREVIOUS HOSPITALIZATIONS AND OPERATIONS: The patient had his left 4th toe amputated after he stepped on a tack. He has had placement of dialysis catheters. The current dialysis catheter on the right side of the chest is the patient's 3rd catheter that is put in. The patient had an inferior vena cava filter placed secondary to a clot in his right leg. He has had surgery on his left eye. He is had 3 [place] Split catheters placed for dialysis. He has been seen by Dr. Feliciano for treatment of endocarditis. MEDICAL DISEASES: Positive for diabetes mellitus, hypertension, end-stage renal disease and pulmonary embolus. INFECTIOUS DISEASE HISTORY: Positive for pneumonia, urinary tract infection, toe infection after the patient stepped on a tack and finally, the patient has been treated for methicillin-resistant Staphylococcus aureus endocarditis. FAMILY HISTORY: Positive for diabetes mellitus, hypertension and myocardial infarction. SOCIAL HISTORY: The patient lives in [place]. 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 He does not smoke cigarettes, drink alcoholic beverages or abuse drugs. He does not have any pets at home. ALLERGIES: He is allergic to clonidine, morphine and Bactrim. HOME MEDICATIONS: Include acetaminophen, Augmentin, Coreg, Apresoline, insulin, lactulose, losartan, and promethazine. PHYSICAL EXAMINATION: Vital Signs: Temperature is 97.9 degrees, pulse 104, respirations 22, blood pressure is 208/120. General: This is a fairly healthy-appearing, young male. He is in no acute distress. Head, eyes, ears, nose, and throat: He can hear my spoken words and see near objects. He does not have any white patches on his tongue. Neck: No meningismus. Lungs: Clear to auscultation. Cardiovascular: Heart rate is rapid but regular. I did not hear a murmur. Abdomen: Soft and nontender. Neurologic: The patient is alert. The patient can move his extremities. There is no tremor. His motor and sensory exams were grossly normal. Integument: No rash noted. Bones, joints, muscles: Patient has surgical absence of his left 4th toe. Thank you for the consult. cc: MD Jun Lazcano MD
[2019-03-05] MEDS: LANTUS INSULIN SUBQ SCH (19:02)
[2019-03-05] MEDS: COREG PO SCH (22:39)
[2019-03-05] MEDS: COUMADIN PO SCH (22:40)
[2019-03-06 06:20] LABS: BASO# 0.02 X1000 (0.0-0.2); BASO% 0.3 % (0.0-0.8); EOS# 0.23 X1000 (0.0-0.7); EOS% 3.6 % (0.0-10.0); HEMATOCRIT 34.9 % (42.0-52.0); HEMOGLOBIN 11.7 g/dL (14.0-18.0); LYMPH# 1.77 X1000 (1.2-3.4); LYMPH% 27.8 % (20.5-51.1); MCH 27.6 PG (27-31); MCHC 33.5 g/dL (33-37); MCV 82.3 FL (81-99); MONO# 0.45 X1000 (0.11-0.59); MONO% 7.1 % (1.7-9.3); MPV 9.9 FL (7.4-10.4); NEUT% 61.2 % (42.2-75.2); PLT 461 X1000 (130-400); RBC 4.24 XMIL (4.7-6.1); RDW 16.3 % (11.5-14.5); WBC 6.37 X1000 (4.8-10.8)
[2019-03-06] MEDS: HUMALOG SUBQ SCH ×4 (06:48→22:00)
[2019-03-06 06:55] LABS: ALBUMIN 2.9 g/dL (3.5-5.0); CALCIUM 8.8 mg/dL (8.8-10.2); CREATININE 8.7 mg/dL (0.7-1.2); PHOSPHORUS 6.6 mg/dL (2.7-4.5); POTASSIUM 4.2 mmol/L (3.5-5.1)
[2019-03-06] MEDS ORDERED: HEPARIN IV PRN (07:26)
[2019-03-06] MEDS ORDERED: NS 2,000 ML MISC PRN (07:26)
[2019-03-06] MEDS ORDERED: TIGHT: 0.2 ML/HR FOR DIALYSIS MISC PRN (07:26)
--- NOTE | 2019-03-06 07:30 | EKG Report ---
Test Performed on : 03/04/2019 11:58:48 PM Test Reason : Elevated Troponin Blood Pressure : / mmHG Vent. Rate : 098 BPM Atrial Rate : 098 BPM P-R Int : 164 ms QRS Dur : 144 ms QT Int : 392 ms P-R-T Axes : 056 035 042 degrees QTc Int : 500 ms Normal sinus rhythm. Right bundle branch block Abnormal ECG When compared with ECG of 04-MAR-2019 15:07, (Unconfirmed) No significant change was found Confirmed by Enrico ROGERS, Darion Mays ([id number]) on 03/06/2019 7:58:52 AM
--- NOTE | 2019-03-06 08:59 | ECHO REPORT ---
ORDER DATE: 03/05/2019 INTERPRETING PHYSICIAN: DR. Rajesh Echevarria. ECHOCARDIOGRAPHIC MEASUREMENTS: 1. Interventricular septum 1.4 cm 2. Left ventricular posterior wall 1.4 cm. 3. Diastolic diameter 4.8 cm. 4. Left atrium 4 cm. 5. Aorta 3.2 cm. SUMMARY OF THE 2-DIMENSIONAL IMAGIN. Aortic valve leaflets are trileaflet. 2. Pulmonic valve was normal. 3. There is trace pulmonary regurgitation. 4. Tricuspid valve was normal. 5. Normal left ventricular cavity size. 6. Mild left ventricular hypertrophy. 7. Estimated ejection fraction of 60-65%. 8. Near the mitral annular of the posterior mitral valve leaflet echodense shadowing noted; however, this is not well visualized in all views. Would recommend evaluating with transesophageal echocardiogram if clinically indicated. Especially to rule out endocarditis. 9. There is no pericardial effusion. cc: MD Jun Alberto MD
--- NOTE | 2019-03-06 09:39 | NEPHROLOGY CONSULTATION ---
DATE: 03/06/2019 REASON FOR ADMISSION: Shortness of breath. REASON FOR CONSULTATION: ESRD management, assist with management. CONSULTING PHYSICIAN: Dr. Talbert. HISTORY OF PRESENT ILLNESS: This is a 38-year-old gentleman who presented to the emergency room over the weekend with chest pain and shortness of breath. He was diagnosed with pulmonary emboli but did not wish to be admitted to the hospital and left AMA. He re-presented yesterday, continuing to have shortness of breath and chest pain, after one of his physicians had encouraged him to come back to the hospital for treatment. His last dialysis was on Wednesday. He had no issues with that. He stated that he had a little less fluid on than usual. He states there have been no changes to his prescription to his knowledge of his dialysis treatment. This morning, he continues to have some mild shortness of breath. He denies chest pain. He has some chronic nausea. No overt vomiting. No other issues. PAST MEDICAL HISTORY: Hypertension, diabetes, ESRD on dialysis Wednesday, Wednesday, Wednesday. He has an IVC filter placed. He has a history of pulmonary emboli in the past. He has a history of DVT. SURGICAL HISTORY: Again, he has an IVC filter placed. He has a tunneled dialysis catheter, right upper chest wall. ALLERGIES: Clonidine, morphine, sulfa, trimethoprim. HOME MEDICATIONS: Lantus, lisinopril, insulin, Coreg, lactulose, losartan, promethazine, hydralazine. FAMILY HISTORY: Diabetes. SOCIAL HISTORY: . No ETOH, tobacco, or illicit drug use. REVIEW OF SYSTEMS: Positive for dyspnea, some mild chest pain. Positive for nausea. Denies any vomiting. No syncopal episodes. No change in bowel or bladder habits. VITAL SIGNS: Temperature 98.5 degrees, pulse 94, respiratory rate 14, blood pressure 122/79. Intake 150 mL. Output not measured. PHYSICAL EXAMINATION: General: This is a middle-aged gentleman resting in bed. He is awake and alert. He is in no acute distress. HEENT: Normocephalic, atraumatic. SIS. Conjunctivae are pink. His oral mucosa is moist. Neck: Supple. There is no JVD in a reclined position. Cardiovascular: Reveals a regular rate and rhythm. No murmur appreciated. Pulmonary: He is clear bilaterally. He has no increased work of breathing. He is on O2 supplementation via nasal cannula. Abdomen: Soft. Positive bowel sounds. : Not inspected. Minimal void. Extremities: No clubbing, cyanosis. No edema. He is moving all extremities and repositioning self in bed without assistance. Integumentary: His skin is warm and dry. There is no rash or lesion appreciated. His tunneled dialysis catheter site is clean, dry, and intact. Neurologic: Grossly nonfocal. LAB DATA: WBC of 6.3, hemoglobin 11.7. Sodium 137, potassium 4.2, CO2 23, creatinine 8.7. Chest x-ray with no infiltrate or effusion. ASSESSMENT/PLAN: 1. End-stage renal disease management. Today is his routine dialysis day. We will plan to dialyze him on a 2 K bath/ultrafiltration to his dry weight, 3.5 hour treatment. We will contact [facility] and obtain his prescription from there. 2. Pulmonary emboli. Patient is currently on heparin protocol. 3. Electrolytes, acid-base balance, anemia. These are all stable. 4. Hypertension, controlled. Dictated by WONG Albrecht for Fox Low MD Face to face encounter, data reviewed, discussed with William Abreu on 03/06/19. I agree with the above assessment and plan of care. cc: MD Jun Wilson MD [facility]
--- NOTE | 2019-03-06 11:15 | PROGRESS NOTE ---
DATE: 03/06/2019 SUBJECTIVE: This morning, Mr. Arenas referred to be doing fairly okay. Denies any complaint. He was sitting up in a chair at the time of the encounter. No more chest pain. OBJECTIVE: Vital signs: Blood pressure was 116/67, pulse is 93, respirations 15, temperature was 98.0 degrees. The patient was saturating about 98% on room air. General: Mr. Arenas is a 38- year-old gentleman. He was sitting up in a chair. He was not in any distress. HEENT: Mucosa was pink and moist. Anicteric. Acyanotic. Neck: Supple. Respiratory System: There is good air entry bilaterally. No crepitations. No rhonchi. There was no accessory muscle use. Cardiovascular: Regular rate and rhythm. No murmurs, no rubs, no gallops. Abdomen: Soft, nontender. Bowel sounds are present. There was no hepatosplenomegaly. Extremities: No pedal edema. Distal pulses are present. Neurologic: The patient was awake, alert, and oriented. There is no focal neurological deficit. LINES: Mr. Arenas has a right IJ tunneled dialysis catheter. LABORATORY DATA: CBC is reviewed. Hemoglobin is about 11.7, which is fairly stable. Chemistry is also reviewed, which is consistent with renal failure. The glucose was 226. A1c was 8.5. IMAGING STUDIES: An echocardiogram showed an ejection fraction of about 60%-65%. There is a mention of an echodense shadowing which was visualized at the mitral valve and JOSE is recommended if there is a concern for endocarditis. ASSESSMENT: 1. Pulmonary emboli. The patient is currently on Lovenox and Coumadin. 2. Diabetes mellitus, insulin dependent. We will continue with insulin regimen. 3. Chronic kidney disease, stage V. The patient is on scheduled dialysis Wednesday, Wednesday, and Wednesday. He is due for a session today. 4. Uncontrolled hypertension on presentation, improved. 5. Chronically elevated troponins noted. 6. 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 FINDINGS: Some of the findings in the lungs were concerning for septic emboli. A transthoracic echocardiogram has made mention of some echodense image in the mitral valve. Blood cultures have been negative. I think it is reasonable to pursue JOSE to completely rule out endocarditis or recurrent endocarditis. We have consulted Cardiology for JOSE evaluation and will follow up with further recommendations from Infectious Disease as well. DISPOSITION: Disposition is going to depend on the recommendations from the other subspecialties including Cardiology, Nephrology and Infectious Disease. In terms of anticoagulation for the PE, Mr. Arenas can be discharged on 5 day course of therapeutic Lovenox and Coumadin bridging until the INR is therapeutic. He will follow up with Dr. Leiva who is his primary care doctor. cc: Jun Talbert MD
--- NOTE | 2019-03-06 12:39 | CARDIOLOGY CONSULTATION ---
DATE: 03/06/2019 CHIEF COMPLAINT: Shortness of breath. HISTORY OF PRESENT ILLNESS: Mr. Arenas is a 38-year-old, black male with end-stage renal disease who presented for evaluation of chest pain and shortness of breath. This originally began in dialysis. He presented on the . He was diagnosed with a pulmonary embolus in the right lower lobe. He apparently did not stay for that and eventually re-presented on the . Continues saying he is having chest pain and shortness of breath, and his dialysis physician encouraged him to come back to the hospital. He has an apparent history of catheter tip infections and had one of his dialysis catheters removed, and then subsequently was treated and had it replaced. We are consulted for a transesophageal echocardiogram which, after echocardiogram on the , suggested some thickening and shadowing in the posterior mitral valve leaflet. He is not having any current chest pain. He is on dialysis presently. PAST MEDICAL HISTORY: Significant for end-stage renal disease, hypertension, diabetes, pulmonary embolus. SOCIAL HISTORY: He is on disability. He is . No current tobacco use. FAMILY HISTORY: Significant for hypertension. REVIEW OF SYSTEMS: A 10 system review of systems is negative except for those things mentioned in the HPI. PHYSICAL EXAMINATION: The patient is afebrile. His heart rate is 93, blood pressure 116/67. General: No acute distress. HEENT: Oropharynx is moist. Normal dentition. Eye examination shows pink conjunctivae and white sclerae. Neck: Examination shows no obvious thyromegaly or thyroid tenderness. Cardiovascular: He sounds to be in a regular rate and rhythm. He has no obvious murmurs. He has no S3. He has no lower extremity edema. Chest: Examination is clear bilaterally. He has no increased work of breathing. Abdomen: Soft, nontender, nondistended. He has no obvious organomegaly. Skin Examination: Warm and dry throughout. Neurological: Moving all extremities well. No lateralizing deficits. PERTINENT DATA: His echocardiogram shows an EF of 60-65%. He has an echodense shadowing in the posterior mitral valve leaflet, suggestive of possible vegetation. He had mild to moderate LVH, mild left atrial enlargement. He had a chest x-ray performed, demonstrating no vascular distention, no pneumothorax, no obvious infiltrate. His electrocardiogram on the reviewed by me at 2358 shows sinus rhythm, 98 beats per minute. Right bundle branch block is present. His other EKG on the at 1507 again shows sinus rhythm, 95 beats per minute. Right bundle branch block is present. His lab data shows a white count of 6.4, hematocrit 34, platelet count 461,000. His sodium was 137, potassium was 4.2, BUN was 49, creatinine was 8.7. His cardiac enzymes have been persistently positive on every check since January of 2018. ASSESSMENT: Mr. Arenas is a 38-year-old gentleman who presented with a pulmonary embolus. PLAN: Given his pulmonary embolus, history of catheter tip infection, and thickened mitral valve, I would recommend transesophageal echocardiogram to evaluate the mitral valve. I do not believe the mitral valve is involved in the pulmonary embolus, given that it is on the left side of the heart and he would have to have a vegetation on the right side to result in a septic emboli from endocarditis. We could certainly try to take pictures of the dialysis catheter tip. The risks, benefits, and alternatives of the procedure have been discussed with the patient, and he agrees to proceed. This is tentatively planned for tomorrow. cc: MD Jun Wilkes MD
[2019-03-06] MEDS: APRESOLINE PO SCH ×3 (13:20→16:57)
[2019-03-06] MEDS: COZAAR PO SCH (13:25)
[2019-03-06] MEDS: COREG PO SCH ×2 (13:25→22:43)
[2019-03-06] MEDS: HYGROTON PO SCH (13:25)
[2019-03-06] MEDS: LANTUS INSULIN SUBQ SCH (13:26)
[2019-03-06] MEDS: LOVENOX SUBQ SCH (13:27)
--- NOTE | 2019-03-06 14:59 | INFECTIOUS DISEASE PROGRESS NO ---
DATE: 03/06/2019 PRESENT ILLNESS: Mr. Arenas has been admitted for a possible septic emboli due to endocarditis. MEDICATIONS: He is receiving IV vancomycin 1 g and cefepime 1 g after each dialysis. PHYSICAL EXAM: Vital Signs: Temperature is 98 degrees, pulse rate 93, respiratory rate 15, blood pressure 116/67, O2 saturation is 98% on room air. General: This is a chronically ill-appearing middle-aged gentleman. He is lying in bed currently in no acute distress. HEENT: Atraumatic, normocephalic. Oral mucous membranes are pink and moist. Conjunctivae are pink. Neck: Supple. Trachea is midline. Cardiovascular: Heart rate and rhythm are regular. Normal sinus rhythm on the monitor with a right bundle branch block. No murmur or gallop is noted. Respiratory: Lung sounds are clear to auscultation bilaterally. Abdomen: Soft, round and nontender. Bowel sounds are active. Neurologic: He is awake, alert, and oriented. He does have some mild lower extremity weakness. Upper extremities are strong. Integument: There is a dialysis catheter to his right chest, that site is without edema, erythema or drainage. LABORATORY AND X-RAY: Today his white count is 6.37, hemoglobin 11.7, platelet count 461,000. Creatinine is 8.7, GFR 8. Blood cultures have shown no growth after 48 hours. No imaging reports today. ASSESSMENT AND PLAN: Mr. Arenas is being treated with vancomycin and cefepime after each dialysis treatment for the possibility of septic emboli and endocarditis. He was previously treated for endocarditis. On this admission, he has had a transthoracic echocardiogram which was indeterminate. The plan right now is for him to have a transesophageal echocardiogram tomorrow. For now we will continue vancomycin and cefepime as ordered. These plans have been discussed with and recommended by Dr. Willis. COMORBIDITIES: Include diabetes mellitus, end-stage renal disease with hemodialysis, pulmonary emboli with recent endocarditis diagnosis. Dictated by WONG Chou for Drew Willis MD cc: MD Jun Lazcano MD MTDD
[2019-03-06] MEDS ORDERED: MAXIPIME 1 GM in NS 50 ML IV ONE (17:00)
[2019-03-06] MEDS ORDERED: VANCOMYCIN 1 GM/NS 1 GM/250 ML IVPB IV ONE (17:30)
[2019-03-06] MEDS: COUMADIN PO SCH (22:43)
[2019-03-06] MEDS: PHENERGAN IV PRN (23:02)
[2019-03-07] MEDS: HUMALOG SUBQ SCH ×2 (06:40→15:24)
[2019-03-07 06:41] LABS: BASO# 0.03 X1000 (0.0-0.2); BASO% 0.5 % (0.0-0.8); EOS# 0.25 X1000 (0.0-0.7); EOS% 4.4 % (0.0-10.0); HEMATOCRIT 36.7 % (42.0-52.0); LYMPH# 1.78 X1000 (1.2-3.4); MCH 27.2 PG (27-31); MCHC 32.7 g/dL (33-37); MCV 83.2 FL (81-99); MONO# 0.51 X1000 (0.11-0.59); MONO% 8.9 % (1.7-9.3); MPV 9.8 FL (7.4-10.4); NEUT# 3.17 X1000 (1.4-6.5); NEUT% 55.2 % (42.2-75.2); PLT 455 X1000 (130-400); RBC 4.41 XMIL (4.7-6.1); RDW 16.4 % (11.5-14.5); WBC 5.74 X1000 (4.8-10.8)
[2019-03-07 06:55] LABS: INR 1.07; PROTIME 14.8 Seconds (11.0-16.0)
[2019-03-07 07:06] LABS: CALCIUM 8.9 mg/dL (8.8-10.2); PHOSPHORUS 5.9 mg/dL (2.7-4.5)
[2019-03-07 07:09] LABS: CREATININE 6.7 mg/dL (0.7-1.2)
--- NOTE | 2019-03-07 08:55 | NEPHROLOGY PROGRESS NOTE ---
DATE: 03/07/2019 SUBJECTIVE: He is feeling well. Shortness of breath is minimal. OBJECTIVE: Blood pressure 145/78, heart rate 89, respirations 14, afebrile. General: No acute distress. Skin is warm and dry. Conjunctivae are pink. Neck veins are not distended. Cardiovascular: Heart is regular. Lungs are Equal. Abdomen: Soft. Extremities: No edema. IMPRESSION AND PLAN: Chronic kidney disease 5D. His next planned dialysis treatment is tomorrow. Electrolytes and acid-base are acceptable. Volume status is in target. cc: MD Jun Wilson MD
--- NOTE | 2019-03-07 09:21 | PROGRESS NOTE ---
DATE: 03/07/2019 HISTORY: Mr. Arenas was admitted on 03/04/2019. Came in with shortness of breath. A patient of Dr. Robert Leiva. This is a 38-year-old who presented to the ER. Actually came the day before with chest pain, shortness of breath, diagnosed with pulmonary emboli. Decided not to stay in the hospital and left AMA. He presented yesterday. He had a pulmonary emboli and chronic kidney disease, hyperkalemia, diabetes, and hypertension. He was sleeping, resting comfortably, easy to arouse. OBJECTIVE: Temperature 98.4 degrees, pulse 86, respirations 16, blood pressure 140/72. Pupils are equal and round. Lungs are clear in all lung kaur. Cardiovascular Examination: Regular rhythm and rate without murmur or S3. Abdomen is soft. Skin is warm and dry. Urine output was 3000 mL. Blood sugars 226, 228, 158. ASSESSMENT AND PLAN: 1. Admitted for possible septic emboli due to endocarditis. Getting intravenous vancomycin and cefepime. He has been previously treated for endocarditis. I think they will plan on another transesophageal echocardiogram. 2. He has a thickened mitral valve and planning on transesophageal echocardiogram today. Continue current medications. cc: MD Jun Anders MD
[2019-03-07] MEDS ORDERED: SODIUM CHLORIDE 0.9% 10 ML ONE (09:35)
[2019-03-07] MEDS ORDERED: XYLOCAINE 4% TOPICAL SOLUTION ONE (09:35)
[2019-03-07] MEDS ORDERED: XYLOCAINE 2% VISCOUS ONE (09:35)
[2019-03-07] MEDS ORDERED: CLAVE TWINSITE 32 IN 11959 ONE (09:58)
[2019-03-07] MEDS ORDERED: ANESTHESIA PB SET 88 IN 5742 ONE (09:58)
[2019-03-07] MEDS ORDERED: NS 1,000 ML ONE (09:59)
[2019-03-07] MEDS ORDERED: XYLOCAINE-MPF 2% ONE (10:20)
[2019-03-07] MEDS ORDERED: ROBINUL ONE (10:20)
[2019-03-07] MEDS ORDERED: DIPRIVAN 1% ONE ×2 (10:20)
[2019-03-07] MEDS ORDERED: LOPRESSOR ONE (10:38)
[2019-03-07] MEDS ORDERED: APRESOLINE ONE (10:38)
--- NOTE | 2019-03-07 11:22 | Transesophageal Echocardiogram ---
DATE: 03/07/2019 PHYSICIAN: Dr. Lincoln REQUESTING PHYSICIAN: Dr. Nima Damon. CLINICAL INDICATIONS: Suspected endocarditis. HISTORY: A 38-year-old male on hemodialysis presenting with pulmonary embolus and also with suspected endocarditis. JOSE was requested for better evaluation. Benefits, risks, and complications were discussed. He understood and requested to proceed. DESCRIPTION: The patient was brought to the cardiac laboratory veterinarian. He received anesthetic topically, Hurricaine and viscous lidocaine. Then, he was given IV propofol under Anesthesia services with Dr. Negron. The esophagus was intubated without difficulty. Multiple views of the heart were obtained. SUMMARY OF MAIN FINDINGS: 1. The left atrium and the appendage are normal. 2. The interatrial septum is normal. 3. The right atrium appears to have diffuse subendocardial thickening (up to 9 mm at the level of the junction with the superior vena cava, up to 6 mm at the level of the free RA wall as it approaches the Inferior vena cava). (in comparison the left atrial wall is 3 mm in thickness). This is suggestive of organized layered thrombus within the right atrium. 4. The superior vena cava at the junction with the right atrium shows the presence of a catheter and attached to the catheter appears to be a formation of blood clot or thrombus with a mobile element consistent with infected thrombus or "endocarditis." 5. The pulmonary venous flow is normal. 6. The tricuspid valve is normal. 7. The right ventricle is normal. 8. Pulmonic valve is normal. 9. The aortic valve has 3 cusps. Color flow mapping was unremarkable. 10.The mitral valve is normal. 11.Color flow mapping of mitral annulus is unremarkable. 12.The left ventricle shows mild thickening of the [place] with normal function. 13.The right ventricle shows normal function. 14.There is no pericardial effusion. 15.The descending thoracic aorta shows no evidence of plaque. 16. The Eustachian valve is normal. The Thebesian valve appears small and free of thrombus.(junction of coronary sinus with RA). SUMMARY: This transesophageal echocardiogram shows the presence of what appears to be organized thrombus around indwelling catheter at the junction of superior vena cava with right atrium with mobile element consistent with vegetation/endocarditis. There is diffuse subendocardial thickening of Right atrium suggesting layered,organized thrombus. The cardiac valves including the mitral, aortic, tricuspid, pulmonic, and eustachian valves were all well visualized and they are free of infection. Clinical correlation is recommended. The patient tolerated the procedure well. cc: MD Rozina Eng PA Raphael K. Quansah, MD MTDD
[2019-03-07] MEDS: APRESOLINE PO SCH ×2 (13:55→15:49)
[2019-03-07] MEDS: LANTUS INSULIN SUBQ SCH (13:55)
--- NOTE | 2019-03-07 14:22 | DISCHARGE SUMMARY ---
ADMISSION DATE: 03/04/2019 DISCHARGE DATE: 03/07/2019 SUBJECTIVE: Patient was admitted on 03/04/2019 and transferred to [facility] on 03/07/2019, presented with shortness of breath. He is a patient of Dr. Robert Leiva. This is a 38-year-old male presented to the emergency room, actually came in on 03/03/2019 with shortness of breath, diagnosed with pulmonary emboli and decided not to stay in the hospital left AMA. He presented again on 03/04/2019 with chest pain, shortness of breath and decided to come into the hospital. He is allergic to clonidine, which causes anaphylaxis, morphine and Bactrim. PAST MEDICAL HISTORY: History of DVTs and I believe he has had a pulmonary emboli in the past. History of hypertension, diabetes mellitus, chronic renal failure on hemodialysis with an IVC filter and apparently has had endocarditis and was treated for endocarditis. He had a carotid Doppler on 03/05/2019. Tricuspid was normal. Trace pulmonary regurgitation. Pulmonic valve normal. Mild left ventricular hypertrophy. Ejection fraction 60% to 65%. Near the mitral annular posterior mitral valve leaflet echodense shadowing noted not well visualized and so elected to do a transesophageal echo. Infectious Disease was consulted on 03/05 he has had a pulmonary embolus in the right lower lobe and thought this could possibly be a septic emboli from endocarditis. The patient approximately 2 months ago was treated for endocarditis of mitral valve. Right lower lobe pulmonary embolus. Also nodule seen in the right upper lobe could be from endocarditis. On transesophageal echo. Echo could see vegetations on the valve and also on the intravenous catheter showed presence of what appeared to be organized thrombus around indwelling catheter at the junction of superior vena cava with right atrium and mobile element consistent with vegetation endocarditis. Cardiac valves including mitral valve, tricuspid, pulmonic were well visualized and they seem to be free of infection. The patient is feeling better. The osd clerk and the vascular surgeon would like him transferred to [place] and so we will try and get that arranged. CURRENT MEDICATION: He is on Coreg 6.25 mg b.i.d., cefepime 1 g IV after dialysis, [place] 12.5 mg daily, Lovenox 90 mg subcutaneous daily, Apresoline 10 mg IV q.4 hours p.r.n. elevated blood pressure, hydralazine 50 mg p.o. t.i.d., insulin glargine 15 units subcutaneous daily, vancomycin 1 g after dialysis, Coumadin 10 mg at bedtime. DISPOSITION: Note his pro time was 14.8 today so transferred to [facility] as he probably will have to have his venous catheter removed and continue with IV antibiotics. cc: MD Jun Anders MD
--- NOTE | 2019-03-07 15:15 | CARDIOLOGY PROGRESS NOTE ---
DATE: 03/07/2019 SUBJECTIVE: Mr. Arenas reports he feels well today. He underwent his transesophageal echocardiogram earlier today. PHYSICAL EXAMINATION: Afebrile. Heart rate 86, blood pressure 170/88. General: No acute distress. Cardiovascular: He sounds to be in a regular rate and rhythm. No murmurs. No S3. He has no lower extremity edema. His chest exam is clear bilaterally. No increased work of breathing. Abdomen: Soft, nontender. PERTINENT DATA: White count 5.7, hematocrit 36, platelet count is 455,000. Sodium 143, potassium is 4, BUN is 31, creatinine 6.7, albumin is 3.0. ASSESSMENT: Mr. Arenas is a 38-year-old gentleman who presented with pulmonary emboli. PLAN: His JOSE demonstrated what appears to be an echodensity adherent to the dialysis catheter tip. Suggestion based on other clinical data would be that this is a clot and not an infected vegetation given the fact that he has not been febrile. His white blood cell count has been normal and his blood cultures have been negative. He is pending potential transfer over to [facility] for consideration of removal and replacement of dialysis access. He is currently on anticoagulation. I have escalated his Coreg up to 12.5 p.o. b.i.d. given his blood pressure elevations. If we can be of further assistance with the patient, please do not hesitate to ask. cc: MD Jun Wilkes MD
[2019-03-07] MEDS: HYGROTON PO SCH (15:47)
[2019-03-07] MEDS: COZAAR PO SCH (15:47)
[2019-03-07] MEDS: LOVENOX SUBQ SCH (15:49)
[2019-03-07 15:55] VITALS: BP 170/90
--- NOTE | 2019-03-07 16:18 | INFECTIOUS DISEASE PROGRESS NO ---
DATE: 03/07/2019 PRESENT ILLNESS: The patient has a pneumonia possibly due to septic emboli from endocarditis. It appears also that the patient's dialysis catheter has a thrombus around it which could also be infected. MEDICATIONS: The patient is receiving vancomycin and cefepime after each dialysis. PHYSICAL EXAMINATION: Vital Signs: Temperature is 97.9 degrees, pulse 86, respirations 16, blood pressure 170/88. General: This is a chronically ill-appearing, middle-aged male. He is in no acute distress. Head, eyes, ears, nose, throat: He can hear my spoken words and see near objects. He does not have any white patches on his tongue. Neck: There is no pain when he turns his head. Lungs: Clear to auscultation. Cardiovascular: Heart rate is regular. I did not hear a murmur. Abdomen: Soft and nontender. Neurologic: The patient is alert. He can move his extremities. There is no tremor. LAB AND X-RAY: The CBC for today shows a white count of 5,740, hemoglobin 12, and platelet count 455,000. The patient's creatinine is 6.7. GFR is 11. The patient's 2 blood cultures showed no growth at 48 hours. The patient's transesophageal echocardiogram shows there is a thrombus around the dialysis catheter and a mobile element in the right atrium compatible with endocarditis. ASSESSMENT AND PLAN: The patient may have endocarditis and an infected dialysis catheter and there may be septic emboli to the lungs causing pneumonia. For now I plan to continue the patient's antibiotics and I have also ordered a procalcitonin level. The patient's dialysis catheter is to be removed. COMORBIDITIES: Diabetes mellitus, end-stage renal disease with hemodialysis, pulmonary emboli with a recent diagnosis of endocarditis. cc: MD Jun Lazcano MD
[2019-03-07] MEDS ORDERED: COREG PO SCH (21:00)
== END 2019-03-07 16:15 | disposition short-term general hospital (02) | DRG 314 ==
LOC: P.ED 13:34 → SUATTDRO 17:51 → 4N 17:51
PROVIDERS: ADMIT Internal Medicine; ATTEND Emergency Medicine
CPT/HCPCS: 71010; 71045; 80048; 80053; 80069; 80076; 82550; 82948; 83036; 83880; 84484; 85025; 85610; 85730; 87040; 93005; 93010; 93306; 93312; 94640; 94760; 94761; 96365; 96372; 96375; 99285; A9270; J0360; J0610; J0692; J1644; J1650; J1815; J2543; J2550; J3370; J7030; XXXXX

== ENCOUNTER 2019-11-17 06:48 | Inpatient (IN) ==
[2019-11-17] MEDS ORDERED: MOTRIN PO ONE (06:59)
--- NOTE | 2019-11-17 07:30 | PROVIDER DOCUMENTATION ---
HPI-EENT General - General Chief Complaint: Flu Symptoms Stated Complaint: FLU SX Time Seen by Provider: 11/17/19 07:25 Source: patient Allergies/Adverse Reactions: Patient Allergies Allergy/AdvReac Type Severity Reaction Status Date / Time clonidine Allergy Severe ANAPHYLAXIS Verified 11/17/19 06:56 morphine Allergy Mild HIVES Verified 11/17/19 06:56 sulfamethoxazole Allergy Unknown Unknown Verified 11/17/19 06:56 [From Bactrim] trimethoprim [From Bactrim] Allergy Unknown Unknown Verified 11/17/19 06:56 Home Medications: Home Medication List Medication Instructions Recorded Confirmed Last Taken Type Insulin Glargine [Lantus] 16 units SQ HS 02/04/18 11/17/19 12/25/18 History Acetaminophen [Tylenol] 650 mg PO Q6H PRN PRN tab 03/07/19 11/17/19 Unknown Rx - History of Present Illness-EENT General Nature of Presenting Problem: sick for 2 days has 2 young children also sick patient is dialyssi 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 EENT Location: reports: nose, throat Quality of Pain: reports: aching Onset/Duration: reports: 2 days ago Timing: reports: still present Prearrival Treatment: Initiated over the counter meds Associated Symptoms: reports: cough, nasal congestion/drainage, sore throat, voice change Locality of Occurance: Home Similar Symptoms Previously?: No Recently seen or treated by another doctor?: No Review of Systems - Adult - REVIEW OF SYSTEMS - ADULT Constitutional: reports: chills, fever, fatique Eyes: reports: no symptoms reported Ears, Nose, Mouth & Throat: reports: hoarseness, throat pain Cardiovascular: denies: chest pain, palpitations Respiratory: reports: cough Gastrointestinal: reports: no symptoms reported Genitourinary: reports: no symptoms reported Musculoskeletal: reports: no symptoms reported Integumentary: reports: no symptoms reported Neurological: reports: no symptoms reported Psychiatric: reports: no symptoms reported Endocrine: reports: no symptoms reported Hematologic/Lymphatic: reports: no symptoms reported Allergic/Immunologic: reports: no symptoms reported All Other Systems: Reviewed and Negative Past History - Adult - PAST MEDICAL HISTORY-ADULT Review of Records: reports: Nursing Assessment Review, Medications Reviewed, Social history reviewed & non-contributory. Major Childhood Illnesses: reports: denies history Cardiovascular: reports: blood clots, HTN Respiratory: reports: denies history Gastrointestinal: reports: denies history Obstetrical/Gynecological: reports: denies history Genitourinary: reports: dialysis Musculoskeletal: reports: denies history Neurological: reports: denies history Psychiatric: reports: denies history Endocrine/Immune: reports: Diabetes Other Conditions: reports: denies history - PRIOR SURGERIES/PROCEDURES Surgical/Procedure History: reports: other (IVC filter) - PRIOR HOSPITALIZATIONS Prior Hospitalizations: reports: for other non-related - IMMUNIZATION STATUS Childhood Immunizations: See Nurse Assessment Flu Vaccine: See Nurse Assessment - FAMILY HISTORY Family History: reviewed, not pertinent Physical Exam- EENT - Physical Exam EENT Initial Vital Signs Reviewed: Yes General Appearance: appears well, alert, no apparent distress Eye Exam: bilateral eye: normal inspection Ear Exam: bilateral ear: TM normal Nasal Exam: normal inspection Throat Exam: pharynx tenderness, uvula swelling Neck: supple Respiratory: lungs clear Cardiovascular: regular rate, rhythm Abdominal Exam: soft Lymphatic: no adenopathy Extremity: normal range of motion, non-tender Integumentary: normal color, normal turgor Neurologic: grossly normal Psych/Mental Status: oriented x 3 Progress - PLAN OF CARE/RESULTS Progress/Plan/Lab Results: Vital Signs - 8 hr 11/17/19 06:54 11/17/19 07:48 11/17/19 09:38 Temperature 102.5 F H 101.6 F H 100.0 F H Pulse Rate 122 H 109 H 102 H Respiratory Rate 22 20 Blood Pressure 169/99 135/83 O2 Sat by Pulse Oximetry 96 95 96 11/17/19 09:55 11/17/19 10:53 Temperature 98.9 F Pulse Rate 99 H 114 H Respiratory Rate 14 24 Blood Pressure 96/54 O2 Sat by Pulse Oximetry 96 98 Laboratory Results - last 24 hr 11/17/19 11/17/19 11/17/19 06:59 06:59 07:40 WBC 18.77 H RBC 4.14 L Hgb 11.8 L Hct 37.3 L MCV 90.1 MCH 28.5 MCHC 31.6 L RDW Std Deviation 13.4 Plt Count 280 MPV 10.1 Immature Gran % (Auto) 0.3 Neut % (Auto) 89.2 H Lymph % (Auto) 5.0 L Posey % (Auto) 5.4 Eos % (Auto) 0.0 Baso % (Auto) 0.1 Immature Gran # (Auto) 0.06 H Neut # (Auto) 16.75 H Lymph # (Auto) 0.94 L Posey # (Auto) 1.01 H Eos # (Auto) 0.00 Baso # (Auto) 0.01 PT INR PTT (Actin FS) Sodium Potassium Chloride Carbon Dioxide Anion Gap BUN Creatinine Estimated GFR/1.73 m2 BUN/Creatinine Ratio Glucose POC Glucose Calculated Osmolality Calcium Total Bilirubin AST ALT Alkaline Phosphatase Creatine Kinase Troponin T High Sens Total Protein Albumin Globulin Albumin/Globulin Ratio Plasma Lactate Influenza A (Rapid) NEGATIVE Influenza B (Rapid) NEGATIVE Group A Strep Rapid NEGATIVE 11/17/19 11/17/19 11/17/19 07:40 07:40 07:40 WBC RBC Hgb Hct MCV MCH MCHC RDW Std Deviation Plt Count MPV Immature Gran % (Auto) Neut % (Auto) Lymph % (Auto) Posey % (Auto) Eos % (Auto) Baso % (Auto) Immature Gran # (Auto) Neut # (Auto) Lymph # (Auto) Posey # (Auto) Eos # (Auto) Baso # (Auto) PT 13.6 INR 0.99 PTT (Actin FS) 32.6 Sodium 131 L Potassium 7.0 H* Chloride 89 L Carbon Dioxide 26 Anion Gap 16 BUN 41 H Creatinine 7.1 H Estimated GFR/1.73 m2 9 BUN/Creatinine Ratio 6 Glucose 362 H POC Glucose Calculated Osmolality 287 Calcium 10.1 Total Bilirubin 0.40 AST 18 ALT 19 Alkaline Phosphatase 129 H Creatine Kinase 228 H Troponin T High Sens Total Protein 8.4 H Albumin 4.3 Globulin 4.0 Albumin/Globulin Ratio 1.0 Plasma Lactate Influenza A (Rapid) Influenza B (Rapid) Group A Strep Rapid 11/17/19 11/17/19 11/17/19 07:40 09:25 10:36 WBC RBC Hgb Hct MCV MCH MCHC RDW Std Deviation Plt Count MPV Immature Gran % (Auto) Neut % (Auto) Lymph % (Auto) Posey % (Auto) Eos % (Auto) Baso % (Auto) Immature Gran # (Auto) Neut # (Auto) Lymph # (Auto) Posey # (Auto) Eos # (Auto) Baso # (Auto) PT INR PTT (Actin FS) Sodium Potassium Chloride Carbon Dioxide Anion Gap BUN Creatinine Estimated GFR/1.73 m2 BUN/Creatinine Ratio Glucose POC Glucose 259 H D Calculated Osmolality Calcium Total Bilirubin AST ALT Alkaline Phosphatase Creatine Kinase Troponin T High Sens 494 H* Total Protein Albumin Globulin Albumin/Globulin Ratio Plasma Lactate 2.5 H Influenza A (Rapid) Influenza B (Rapid) Group A Strep Rapid Orders Category Date Time Status Admit - [facility] Routine AdmDCTranf 11/17/19 10:18 Active Activity - Up with Assistance ORDERED Care 11/17/19 10:18 Active Cardiac Monitoring DIRECTED Care 11/17/19 09:15 Active FSBS/Accucheck Result AC + HS Care 11/17/19 10:18 Active IV Insertion ORDERED Care 11/17/19 09:15 Completed Notify MD of + Sepsis Screen NOW Care 11/17/19 09:15 Active Notify Physician As Ordered Care 11/17/19 09:15 Active Nursing- MD Consult Request ROUTINE Care 11/17/19 10:18 Active Physician/Provider Consults Routine Cons 11/17/19 10:18 Ordered Renal Diet Diet 11/17/19 10:18 Active CHEST-2 VIEWS [RAD] Stat Exams 11/17/19 08:13 Completed BLOOD CULTURE [BLDCUL] Stat Lab 11/17/19 09:25 Ordered CBC WITH ELECTRONIC DIFF [HEME] Stat Lab 11/17/19 07:40 Completed CK PROFILE [SP CHEM] Stat Lab 11/17/19 07:40 Results COMPREHENSIVE METABOLIC PANEL [CHEM] Stat Lab 11/17/19 07:[address] Stat Lab 11/17/19 06:[address] Stat Lab 11/17/19 06:59 Completed LACTATE, PLASMA [CHEM] Lab 11/17/19 09:25 Completed LACTATE, PLASMA [CHEM] Lab 11/17/19 12:15 Uncollected LACTATE, PLASMA [CHEM] Lab 11/17/19 15:15 Uncollected POTASSIUM [CHEM] Stat Lab 11/17/19 10:46 Ordered PROTIME WITH INR [COAG] Stat Lab 11/17/19 07:40 Completed PTT [COAG] Stat Lab 11/17/19 07:40 Completed TROPONIN T HIGH SENSITIVITY Stat Lab 11/17/19 07:40 Completed URINALYSIS W/POSS RFLX CULT [URINALYSIS] Stat Lab 11/17/19 09:15 Uncollected Acetaminophen [Tylenol] Med 11/17/19 10:18 Active 650 mg PO Q6H PRN PRN Albuterol 0.5% INH Conc [Albuterol 0.5% INH Conc For Med 11/17/19 09:22 Disco ntinued Hyperkalemia] 25 mg INH NOW ONE Calcium Gluconate Med 11/17/19 09:49 Discontinued 1 gm IV PUSH NOW ONE CefTRIAXONE [Rocephin] 1 gm Med 11/17/19 09:54 Discontinued 0.9% Sodium Chloride Inj [Ns] 50 ml IV NOW CefTRIAXONE [Rocephin] 1 gm Med 11/18/19 09:00 Active 0.9% Sodium Chloride Inj [Ns] 50 ml IV Q24H Dextrose 5%-Water Inj [D5w] 500 ml Med 11/17/19 09:46 Discontinued IV Wide Open mls/hr Heparin Med 11/17/19 10:25 Discontinued 5,000 unit .ROUTE .STK-MED ONE Heparin Med 11/17/19 10:18 Active 5,000 unit SUBQ Q12H Ibuprofen [Motrin] Med 11/17/19 06:59 Discontinued 600 mg PO NOW ONE Insulin Glargine [Lantus Insulin] Med 11/17/19 21:00 Active 16 unit SUBQ HS Insulin Human Regular (Vened[place]ia [Humulin R (Venedocia)] Med 11/17/19 09:50 Discontinued 10 units .ROUTE .STK-MED ONE Insulin Human Regular ([place]ened[place]ia [Humulin R (Venedocia)] Med 11/17/19 11:00 Active See Protocol SUBQ 0700,1100,1600,2100 Insulin Human Regular [Humulin R] Med 11/17/19 09:47 Discontinued 10 unit IV NOW ONE Ipratropium Hext Neb [Atrovent Neb] Med 11/17/19 11:30 Active 0.5 mg INH RTQ4H Levalbuterol Neb [Xopenex Neb] Med 11/17/19 11:30 Active 1.25 mg INH RTQ4H Ondansetron [Zofran] Med 11/17/19 10:18 Active 4 mg IV Q4H PRN PRN Oseltamivir [Tamiflu] Med 11/17/19 10:30 Active 75 mg PO DAILY Promethazine [Phenergan] Med 11/17/19 10:06 Discontinued 12.5 mg IV NOW ONE Promethazine [Phenergan] Med 11/17/19 10:18 Active 12.5 mg IV Q6H PRN PRN Sodium Bicarbonate 8.4% Med 11/17/19 09:50 Discontinued 50 meq IV PUSH NOW ONE Sodium Chloride 0.9% Med 11/17/19 10:06 Discontinued 10 ml INJ NOW ONE Sodium Chloride 0.9% Med 11/17/19 10:18 Active 10 ml INJ PRN PRN Aerosol Treatments Routine Ot 11/17/19 09:22 Completed Aerosol Treatments Routine Ot 11/17/19 10:18 Active Aerosol Treatments Routine Ot 11/17/19 10:19 Active Aerosol Treatments Stat Ot 11/17/19 09:22 Completed Aerosol Treatments Stat Ot 11/17/19 10:19 Active Oxygen Device Stat Ot 11/17/19 09:15 Completed Pulse Oximetry Routine Ot 11/17/19 10:18 Active EKG [EKG] Routine Ther 11/17/19 09:25 Ordered Transfer/Admit Order [TRANSFER] Routine Transfer 11/17/19 09:53 Ordered Result Diagrams: 11/17/19 07:40 11/17/19 07:40 - EKG 1 Time of EKG reading by physician:: 10:24 EKG Read and Signed by:: Epifanio Adam EKG Interpretation (*Must complete 3 of following elements*): Abnormal Rate: 102 Rhythm: Sinus tachy QRS: RBB ST Wave: normal - XRAY 1 XRAY: Bilateral XRAY Study: Chest Impression: See EMR Report ( IMPRESSION: Possible mild infiltrate at posterior base of chest. Electronically signed by Yair Dang 11/17/2019 9:02 AM) - CONSULTS/PCP/HOSPITALIST Notification #1 *Consult/PCP/Hospitalist*: [place] Time Discussed: 09:15 Consult Disposition: Admit (transfer pt to [facility]) Departure - Departure Date of Disposition Decision: 11/17/19 Time of Disposition Decision: 10:55 DIAGNOSIS: Renal failure, Pneumonia, Sepsis Disposition: ADMITTED INPATIENT 09 Certified Medical Emergency: Emergent Condition: Stable Referrals and Follow-Ups: Robert Leiva MD [Primary Care Provider] - - Critical Care Note This patient required my direct & personal management of CC.: Yes Total Time (mins): 35 Critical Care Statement: This patient required my direct personal management to treat or rule out processes, the absence of which, could potentiallly result in sudden, clinically significant life or limb threatening deterioration. Attestation - Physician/ FELIPA Attestation Patient care was provided by Advanced Practice Provider:: No The physician spent face to face time with patient:: Yes Advanced Practice Provider documentation review:: Supervising physician onsite and consulted in the evaluation and care of this patient. The physician did have a face to face encounter with the patient.
[2019-11-17 07:36] LABS: INFLUENZA A NEGATIVE (NEGATIVE); INFLUENZA B NEGATIVE (NEGATIVE)
[2019-11-17 07:52] LABS: BASO# 0.01 X1000 (0.0-0.2); BASO% 0.1 % (0.0-0.8); HEMATOCRIT 37.3 % (42.0-52.0); HEMOGLOBIN 11.8 g/dL (14.0-18.0); IMM GRAN# 0.06 X1000 (0.0-0.04); IMM GRAN% 0.3 % (0.0-0.5); LYMPH# 0.94 X1000 (1.2-3.4); MCH 28.5 PG (27-31); MCHC 31.6 g/dL (33-37); MCV 90.1 FL (81-99); MONO# 1.01 X1000 (0.11-0.59); MONO% 5.4 % (1.7-9.3); MPV 10.1 FL (7.4-10.4); NEUT# 16.75 X1000 (1.4-6.5); NEUT% 89.2 % (42.2-75.2); PLT 280 X1000 (130-400); RBC 4.14 XMIL (4.7-6.1); RDW 13.4 % (11.5-14.5); WBC 18.77 X1000 (4.8-10.8)
[2019-11-17 08:31] LABS: ALBUMIN 4.3 g/dL (3.5-5.0); CALCIUM 10.1 mg/dL (8.8-10.2); CREATININE 7.1 mg/dL (0.7-1.2); TOTAL BILIRUBIN 0.4 mg/dL (0.20-1.00); TOTAL PROTEIN 8.4 g/dL (6.3-8.3)
--- NOTE | 2019-11-17 09:04 | Diag Imaging Result Doc PS360 ---
EXAM: CHEST-2 VIEWS - 11/17/2019 HISTORY: cough/ TECHNIQUE: Chest two views COMPARISON: 03/28/2019 FINDINGS: Heart size is normal. There is mild prominence of markings at the posterior base of the chest on the lateral view. The lungs otherwise appear clear. There is no pleural effusion or pneumothorax identified. IMPRESSION: Possible mild infiltrate at posterior base of chest. Electronically signed by Yair Dang 11/17/2019 9:02 AM
[2019-11-17] MEDS ORDERED: ALBUTEROL 0.5% INH CONC FOR HYPERKALEMIA INH ONE (09:22)
[2019-11-17] MEDS ORDERED: D5W 500 ML IV ONE (09:46)
[2019-11-17] MEDS ORDERED: HUMULIN R IV ONE (09:47)
[2019-11-17 09:49] LABS: INR 0.99; PROTIME 13.6 Seconds (11.0-16.0)
[2019-11-17] MEDS ORDERED: CALCIUM GLUCONATE IV PUSH ONE (09:49)
[2019-11-17 09:50] LABS: PTT 32.6 Seconds (22.3-41.8)
[2019-11-17] MEDS ORDERED: SODIUM BICARBONATE 8.4% IV PUSH ONE (09:50)
[2019-11-17] MEDS ORDERED: HUMULIN R (PARKWAY) ONE (09:50)
[2019-11-17] MEDS ORDERED: ROCEPHIN 1 GM in NS 50 ML IV ONE (09:54)
[2019-11-17] MEDS ORDERED: PHENERGAN IV ONE (10:06)
[2019-11-17] MEDS ORDERED: SODIUM CHLORIDE 0.9% INJ ONE (10:06)
[2019-11-17] MEDS ORDERED: ZOFRAN IV PRN ×2 (10:18→13:02)
[2019-11-17] MEDS ORDERED: PHENERGAN IV PRN (10:18)
[2019-11-17] MEDS ORDERED: SODIUM CHLORIDE 0.9% INJ PRN ×2 (10:18→12:59)
[2019-11-17] MEDS ORDERED: TYLENOL PO PRN (10:18)
[2019-11-17] MEDS ORDERED: HEPARIN SUBQ SCH (10:18)
[2019-11-17] MEDS ORDERED: HEPARIN ONE (10:25)
[2019-11-17] MEDS ORDERED: TAMIFLU PO SCH (10:30)
[2019-11-17 10:59] LABS: CK INDEX 1.4 (0.0-2.5); CK-MB 3.27 ng/mL (0.0-5.0)
[2019-11-17] MEDS ORDERED: HUMULIN R (PARKWAY) SUBQ SCH (11:00)
--- NOTE | 2019-11-17 11:15 | EKG Report ---
Test Performed on : 11/17/2019 09:39:24 AM Test Reason : emboli Blood Pressure : / mmHG Vent. Rate : 102 BPM Atrial Rate : 102 BPM P-R Int : 146 ms QRS Dur : 140 ms QT Int : 356 ms P-R-T Axes : 055 021 023 degrees QTc Int : 463 ms Sinus tachycardia. Right bundle branch block Abnormal ECG When compared with ECG of 04-MAR-2019 23:58, No significant change was found Unconfirmed Result
[2019-11-17] MEDS ORDERED: XOPENEX NEB INH SCH (11:30)
[2019-11-17] MEDS ORDERED: ATROVENT NEB INH SCH (11:30)
[2019-11-17] MEDS ORDERED: HEPARIN IV PRN (11:48)
[2019-11-17] MEDS ORDERED: NS 2,000 ML MISC PRN (11:48)
[2019-11-17 14:36] LABS: ALBUMIN 3.4 g/dL (3.5-5.0); CALCIUM 9.5 mg/dL (8.8-10.2); CREATININE 7.3 mg/dL (0.7-1.2); PHOSPHORUS 3.1 mg/dL (2.7-4.5)
[2019-11-17] MEDS: XOPENEX NEB INH SCH ×2 (16:40→20:34)
[2019-11-17] MEDS: ATROVENT NEB INH SCH ×2 (16:41→20:33)
[2019-11-17] MEDS: HUMULIN R SUBQ SCH ×2 (16:50→20:35)
[2019-11-17] MEDS ORDERED: ZITHROMAX 500 MG/NS 500 MG/250 ML IVPB IV SCH (17:00)
--- NOTE | 2019-11-17 17:19 | HISTORY AND PHYSICAL ---
PRIMARY CARE PROVIDER: Dr. Leiva. CHIEF COMPLAINT: Nausea, vomiting, diarrhea, dizziness, chills, sore throat, itchy eyes, green phlegm, fever. HISTORY OF PRESENT ILLNESS: Mr. Sawyer Arenas is a 39-year-old male with a medical history of end-stage renal disease, on dialysis Mondays, Wednesdays and Fridays, diabetes mellitus type 1 since the age of 19, right leg DVT with PE and IVC filter placed at the age of 19, hypertension, gastroparesis and peripheral neuropathy, here with complaints that started yesterday. Apparently, he and his both had a fish sandwich from [email or web address]. They both started having nausea, vomiting, diarrhea and dizziness, but later he started to develop sore throat, itchy eyes and green phlegm production and became febrile. This sounds consistent with an aspiration pneumonia. There was a chest x-ray performed which shows a posterior view of some infiltrates in the bases. He is flu negative. He is hyperkalemic. Today is Wednesday and he is due for dialysis today. Currently vital signs are stable. We are going to transfer him across to the [facility] at [facility]. He still continues to have fever. We will try to get a sputum for culture. PAST MEDICAL HISTORY: 1. Diabetes mellitus type 1 diagnosed at age 19. 2. Gastroparesis. 3. Diabetic peripheral neuropathy. 4. Hypertension. 5. DVT and pulmonary emboli. The DVT was right leg. This was at the age of 19, and he had an IVC filter placed. 6. End-stage renal disease with dialysis Wednesday, Wednesday, Wednesday. 7. Peripheral vascular disease. 8. Chronic noncompliance. SURGICAL HISTORY: 1. IVC filter. 2. 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 3. Left upper arm AV graft. SOCIAL HISTORY: Denies tobacco, alcohol or illicit drug use. 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 FAMILY HISTORY: His mother had a stroke and heart attack at the age of 40 and at the age of 41. Father is unknown. He has 1 brother that was just diagnosed with diabetes. ALLERGIES: Clonidine,causes shortness of breath and swelling. He is also allergic to morphine and Bactrim. HOME MEDICATIONS: 1. Lantus 16 units subcutaneous nightly. 2. Tylenol p.r.n. REVIEW OF SYSTEMS: Fourteen-point review of systems was completed, and all were negative except as above-mentioned above HPI. Physical. PHYSICAL EXAMINATION: VITAL SIGNS: Temperature 100, heart rate 102, respiratory rate 20, blood pressure 135/83, O2 saturation 92% to 96% on room air. He is 5 feet 11 inches tall, weight 212 pounds. BMI is 29.6. GENERAL: Mr. Sawyer rAenas is a 39-year-old male. He is in no acute distress. He is able answer questions appropriately. HEENT: Atraumatic, normocephalic. Pupils equal, round, reactive to light. Extraocular movements intact. Mucous membranes are moist. NECK: Trachea midline. CARDIOVASCULAR: S1, S2. Tachycardic rate and rhythm. No rubs, gallops, murmurs. No lower extremity edema. Has +2 dorsalis and radial pulses. Negative JVD or carotid bruits. PULMONARY: Clear to auscultate, bilateral breath sounds anteriorly. He is decreased in the bases posteriorly. No accessory muscle use or work of breathing noted. He is tolerating room air GI: Soft, nontender, nondistended. Positive bowel sounds x4. EXTREMITIES: Moves all extremities equally. Full range of motion. Left upper extremity AV graft with positive bruit and thrill. NEUROLOGIC: A and O x3. Follows commands. Sensory is intact but decreased in the lower extremities. SKIN: Warm, dry, intact. LABORATORY DATA: White blood cells 18,000, hemoglobin 11, hematocrit 37, platelet count 280. INR 0.99, PTT 32.6. Sodium 131, potassium 7.0, BUN 41, creatinine 7.1, glucose 362, calcium 10.1. Bilirubin 0.40, AST 18, ALT 19, albumin 4.3. Flu negative. Strep negative. IMAGING: Chest x-ray shows possible mild infiltrates at the posterior bases of the lungs. ASSESSMENT AND PLAN: 1. Possible aspiration pneumonia with fever, secondary to nausea and vomiting. We will do Rocephin. He did already get some IV fluids. He has complained of coughing up some green phlegm, so we will get a sputum culture on that. 2. Possible food poisoning. He and his both had fish sandwiches from [email or web address]. They both started having nausea, vomiting, diarrhea and dizziness that started yesterday. We will do antiemetics as needed. 3. End-stage renal disease, on dialysis Mondays, Wednesdays and Fridays. Today he is due. We will consult Dr. Low to get him transferred over to [facility]. 4. Hyperkalemia. He has received some insulin and calcium dextrose and albuterol, and dialysis should also help this. The potassium level was 7.0. We will do a recheck later this evening. 5. Diabetes mellitus type 1 with hyperglycemia. The patient states that the type 1 was diagnosed at 19; however, he looks like he could easily be a type 2. His only insulin regimen at home is Lantus 16 units subcutaneously at night. We will do sliding-scale insulin here, and pattern blood glucoses. 6. Hypertension. It looks like no home medications for that. Currently, he is stable. The highest it got was 169/99. 7. Deep venous thrombosis prophylaxis. Heparin subcutaneously 5000 units twice a day. 8. Although the flu swab is negative, prophylactically will start Tamiflu secondary to the very high fevers he is running, in prophylaxis of flu. 9. Gastroparesis. May add to the nausea he is having. 10. Peripheral neuropathy. No medications for that. 11. History of deep venous thrombosis and pulmonary emboli at the age of 19. He has an IVC filter. He is not on any anticoagulants. 12. Peripheral vascular disease. Dictated by WONG Quinones for Robert Leiva MD cc: WONG Quinones MD
--- NOTE | 2019-11-17 18:17 | HISTORY AND PHYSICAL ---
Patient seen and examined by myself, dictated and discussed with nurse practitioner. Patient presented to the hospital with a fever 102 degrees. He and his both got sick last night. He does have a known history of dialysis. We are going to admit him to the hospital. His flu was negative, but he certainly looks like he had the flu and therefore we should start Tamiflu and we will follow. We will continue dialysis and follow. cc: Robert Leiva MD
[2019-11-17] MEDS: LANTUS INSULIN SUBQ SCH (20:35)
[2019-11-17] MEDS ORDERED: LANTUS INSULIN SUBQ SCH (21:00)
[2019-11-17] MEDS: HEPARIN SUBQ SCH (22:35)
[2019-11-18] MEDS ORDERED: CHLORASEPTIC SPRAY MT PRN (00:07)
[2019-11-18] MEDS ORDERED: CHLORASEPTIC SORE THROAT LOZENGE MT PRN (00:07)
[2019-11-18] MEDS: XOPENEX NEB INH SCH ×7 (00:17→23:10)
[2019-11-18] MEDS: ATROVENT NEB INH SCH ×7 (00:17→23:10)
[2019-11-18] MEDS: PHENERGAN IV PRN (02:26)
[2019-11-18] MEDS: TYLENOL PO PRN (02:38)
[2019-11-18 03:32] LABS: URINE SOURCE CLEAN CATCH
[2019-11-18 03:35] LABS: BILIRUBIN URINE NEGATIVE (NEGATIVE); BLOOD URINE TRACE (NEGATIVE); COLOR YELLOW; GLUCOSE URINE 500 mg/dL (NEGATIVE); KETONE URINE NEGATIVE (NEGATIVE); LEUKOCYTES URINE NEGATIVE (NEGATIVE); NITRITE URINE NEGATIVE (NEGATIVE); PH URINE 7.5; PROTEIN URINE 600 mg/dL (NEGATIVE); SP GRAVITY URINE 1.017; TURBIDITY URINE CLEAR (CLEAR); UROBILINOGEN URINE NORMAL (NORMAL)
[2019-11-18 03:36] LABS: UR EPITHELIAL CELLS <10 /HPF (<10); URINE BACTERIA NEGATIVE /HPF; URINE RBC <10 /HPF (<10); URINE WBC <10 /HPF (<10)
[2019-11-18 05:54] LABS: BASO# 0.02 X1000 (0.0-0.2); BASO% 0.1 % (0.0-0.8); EOS# 0.13 X1000 (0.0-0.7); EOS% 0.9 % (0.0-10.0); HEMOGLOBIN 10.6 g/dL (14.0-18.0); IMM GRAN# 0.03 X1000 (0.0-0.04); IMM GRAN% 0.2 % (0.0-0.5); LYMPH# 2.07 X1000 (1.2-3.4); LYMPH% 14.7 % (20.5-51.1); MCH 29.6 PG (27-31); MCHC 32.1 g/dL (33-37); MCV 92.2 FL (81-99); MONO# 1.12 X1000 (0.11-0.59); MONO% 7.9 % (1.7-9.3); MPV 10.3 FL (7.4-10.4); NEUT# 10.72 X1000 (1.4-6.5); NEUT% 76.2 % (42.2-75.2); PLT 234 X1000 (130-400); RBC 3.58 XMIL (4.7-6.1); RDW 13.9 % (11.5-14.5); WBC 14.09 X1000 (4.8-10.8)
[2019-11-18] MEDS: HUMULIN R SUBQ SCH ×4 (06:27→21:39)
[2019-11-18 06:31] LABS: ALBUMIN 3.5 g/dL (3.5-5.0); CALCIUM 9.2 mg/dL (8.8-10.2); CREATININE 5.9 mg/dL (0.7-1.2); MAGNESIUM 1.7 mg/dL (1.5-2.7); POTASSIUM 4.9 mmol/L (3.5-5.1); TOTAL BILIRUBIN 0.35 mg/dL (0.20-1.00)
--- NOTE | 2019-11-18 08:53 | EKG Report ---
Test Performed on : 11/18/2019 06:56:49 AM Test Reason : hyperkalemia Blood Pressure : / mmHG Vent. Rate : 103 BPM Atrial Rate : 103 BPM P-R Int : 136 ms QRS Dur : 140 ms QT Int : 372 ms P-R-T Axes : 056 039 042 degrees QTc Int : 487 ms Sinus tachycardia. Right bundle branch block Abnormal ECG When compared with ECG of 17-NOV-2019 09:39, (Unconfirmed) No significant change was found Confirmed by Enrico ROGERS, Darion Mays ([id number]) on 11/19/2019 10:26:07 PM
[2019-11-18] MEDS: HEPARIN SUBQ SCH ×2 (08:55→21:40)
[2019-11-18] MEDS: TAMIFLU PO SCH (08:55)
[2019-11-18] MEDS: ROCEPHIN 1 GM in NS 50 ML IV SCH (08:56)
[2019-11-18] MEDS ORDERED: ROCEPHIN 1 GM in NS 50 ML IV SCH (09:00)
[2019-11-18 12:00] LABS: HEPATITIS PROFILE ACUTE SEE COMMENTS
[2019-11-18] MEDS: ZITHROMAX PO SCH (14:15)
--- NOTE | 2019-11-18 15:22 | PROGRESS NOTE ---
DATE: 11/18/2019 SUBJECTIVE: The patient feels better. He looks pretty well. He would like to go home. OBJECTIVE: Blood pressure 139/72, heart rate of 108, respiratory rate of 17, temperature 99.6 degrees, 96% on room air. T-max was 102.5 degrees, that was yesterday morning though he has not had any more fever.Cardiovascular: Regular rate and rhythm. Pulmonary: Bilateral breath sounds clear to auscultation. GI: Soft, nontender, nondistended. Bowel sounds are positive. LABS: White count 14, hemoglobin and hematocrit 10 and 33, platelets 234,000, potassium 5.9. PROBLEM LIST: 1. Influenza type syndrome. His flu test was negative but I do not think they got a very good flu test. I am going to repeat it. His constellation of syndrome of dizziness, fever, myalgias, cough, sore throat, nausea, vomiting, diarrhea I think this really is the flu. He does have some infiltrates questionable so we are treating him for pneumonia as well but I think if he is stable, should be able to go home tomorrow. We will continue to monitor closely. 2. End-stage renal, he is doing okay from that standpoint. We will continue to monitor closely. 3. Hypertension is stable on current medications. 4. Type 2 diabetes also controlled on his regular medications. 5. Again disposition, anticipate discharge either later today or in the morning. cc: Greg Ramos MD
--- NOTE | 2019-11-18 16:11 | NEPHROLOGY CONSULTATION ---
DATE: 11/18/2019 REASON FOR CONSULTATION: Hyperkalemia, ESRD, fever. HISTORY OF PRESENT ILLNESS: Mr. Arenas is a 39-year-old, -[place] man, who dialyzes every Wednesday, Wednesday, Wednesday at [facility] on spring. He was due for his dialysis the day he came to the hospital. He has a history of pulmonary emboli, hypertension, diabetes, renal failure. He had worsening chills, fevers, headache, cough, sputum production, as well as nausea and vomiting. This has been going on for several days, he states. He states both he and his had the same symptoms, but were negative for the flu. Her symptoms improved, but his continued to worsen, so he came to the emergency room. His initial evaluation found his potassium 7, and so he was admitted and promptly dialyzed after appropriate initial medical care for his hyperkalemia. PAST MEDICAL HISTORY: As above. MEDICATIONS: Insulin, aspirin. SOCIAL HISTORY: , lives with his . SURGICAL HISTORY: IVC filter. FAMILY HISTORY: Noncontributory. REVIEW OF SYSTEMS: Noncontributory. His dad had advanced coronary disease at a young age. PHYSICAL EXAMINATION: Blood pressure 156/90, heart rate 107, respirations 16, temperature 99.2 degrees.General: He is a healthy-appearing, young man, in no distress. Skin: Warm and dry. Conjunctivae are pink. Pupils are equal. Neck veins are not distended. Trachea is midline. Oropharynx is clear. Normal tongue. Normal teeth. PMI nondisplaced. Regular rate and rhythm without gallops or murmurs. Lungs: Equal breath sounds without crackles or wheezes. Abdomen: Soft, nontender. Bowel sounds are present. No organomegaly or masses. Extremities: No edema, clubbing, or cyanosis. IMPRESSION/PLAN: 1. Chronic kidney disease 5D, complicated by hyperkalemia. He was treated appropriately with medication and dialysis management. Potassium 4.9 today. He is on a renal diet. 2. Acute febrile illness. Possible infiltrate on his chest x-ray. Blood cultures are negative thus far. His antibiotic regimen includes ceftriaxone and azithromycin. Both are dosed appropriately. cc: Fox Low MD
[2019-11-18] MEDS: LANTUS INSULIN SUBQ SCH ×2 (21:39→21:43)
[2019-11-19] MEDS: PHENERGAN IV PRN (00:25)
[2019-11-19] MEDS: TYLENOL PO PRN (01:18)
[2019-11-19] MEDS ORDERED: FLEXERIL PO ONE (02:15)
[2019-11-19] MEDS: XOPENEX NEB INH SCH ×4 (04:04→15:59)
[2019-11-19] MEDS: ATROVENT NEB INH SCH ×4 (04:04→15:59)
[2019-11-19] MEDS: HUMULIN R SUBQ SCH ×3 (06:57→17:16)
[2019-11-19 07:41] LABS: BASO# 0.04 X1000 (0.0-0.2); BASO% 0.4 % (0.0-0.8); EOS# 0.23 X1000 (0.0-0.7); EOS% 2.6 % (0.0-10.0); HEMATOCRIT 33.1 % (42.0-52.0); HEMOGLOBIN 10.5 g/dL (14.0-18.0); IMM GRAN# 0.02 X1000 (0.0-0.04); IMM GRAN% 0.2 % (0.0-0.5); LYMPH# 2.33 X1000 (1.2-3.4); MCHC 31.7 g/dL (33-37); MCV 91.4 FL (81-99); MONO# 0.85 X1000 (0.11-0.59); MONO% 9.5 % (1.7-9.3); MPV 10.2 FL (7.4-10.4); NEUT% 61.3 % (42.2-75.2); PLT 237 X1000 (130-400); RBC 3.62 XMIL (4.7-6.1); RDW 13.8 % (11.5-14.5); WBC 8.97 X1000 (4.8-10.8)
[2019-11-19 08:17] LABS: ALBUMIN 3.4 g/dL (3.5-5.0); CALCIUM 9.6 mg/dL (8.8-10.2); POTASSIUM 4.6 mmol/L (3.5-5.1); TOTAL BILIRUBIN 0.3 mg/dL (0.20-1.00); TOTAL PROTEIN 6.9 g/dL (6.3-8.3)
[2019-11-19 08:24] LABS: CREATININE 7.3 mg/dL (0.7-1.2)
[2019-11-19] MEDS: ROCEPHIN 1 GM in NS 50 ML IV SCH (10:47)
[2019-11-19] MEDS: HEPARIN SUBQ SCH (10:48)
[2019-11-19] MEDS: TAMIFLU PO SCH (10:49)
[2019-11-19] MEDS: ZITHROMAX PO SCH (10:49)
[2019-11-19 15:50] VITALS: BP 148/82
--- NOTE | 2019-11-19 18:29 | DISCHARGE SUMMARY ---
ADMISSION DATE: 11/17/2019 DISCHARGE DATE: 11/19/2019 DISCHARGE DIAGNOSES: 1. Flu-like syndrome, although negative flu test. 2. Lower lobe bilateral pneumonia. 3. End-stage renal disease. HISTORY AND HOSPITAL COURSE: A 39-year-old male, pleasant, type 1 diabetic, hypertension, DVT, dialysis, who comes in with fevers as high as 102.5. Chest x-ray did show some bibasilar infiltrates. He really did describe a lot of symptoms of flu, headache, dizziness, diffuse myalgias, some nausea, some diarrhea, cough, coryza, sore throat, but his flu test, and we repeated it twice, was negative. He has had the flu shot this year. He was treated with Tamiflu and antibiotics. He defervesced by the . His initial white count was 18, down to 14, and is 8.9 at the time of discharge. I feel comfortable for discharge today, which is the . I will discharge him on glargine 16 daily. We will let him finish his Tamiflu. Right now he is just on azithromycin but I may give him Omnicef. We will see how he does. TIME SPENT: Thirty-two minute discharge. cc: MD Robert Jang MD Reginald D. Gladish, MD
== END 2019-11-19 18:52 | disposition home or self-care (01) | DRG 177 ==
LOC: P.ED 06:48 → SUATTDRO 06:49 → 2N 11:02 → 4N 11-18 16:04
PROVIDERS: ATTEND Internal Medicine